=== PATIENT | male | born 1940 | race Caucasian/White ===

== ENCOUNTER 2017-11-10 18:31 | Inpatient (IN) | payer OTHER ==
[~2017-11-10] VITALS: Ht 175.3 cm; Wt 103.9 kg
[~2017-11-10 18:31] MED LIST: ASPIRIN EC81 M1 PO; CENTRUM ADULTS1 EACH PO; CEPHALEXIN500 M3 PO; DIGOXIN125 MCG PO; FISH OIL 1,2001 EAC1 PO; FUROSEMIDE40 M1 PO; HUMALOG100 UNIT/2 SC; LANTUS100 UNIT/1 SC; LEVOTHYROXINE25 MCG PO; LOSARTAN POTASS25 M1 PO; METOPROLOL TART25 M1 PO; OMEPRAZOLE20 M2 PO; SIMVASTATIN40 M1 PO; TAMSULOSIN HCL0.4 M1 PO; VITAMIN B-121000 MC3 PO
--- NOTE | 2017-11-10 18:44 | ED GENERAL ADULT ---
See Addendum History of Present Illness General Chief Complaint: General Adult Stated Complaint: BIBA GENERAL WEAKNESS Source: patient, old records, EMS Exam Limitations: no limitations Vital Signs & Intake/Output Vital Signs & Intake/Output Vital Signs Date Time Temp Pulse Resp B/P B/P Pulse O2 O2 Flow FiO2 Mean Ox Delivery Rate 11/10 2158 108 83/53 11/10 2116 99.2 104 20 84/60 94 Room Air 11/10 1918 Room Air 11/10 1845 107/53 11/10 1839 97.5 108 18 94 Room Air Triage Note: BIBA FROM HOME C/O INCREASED WEAKNESS X 2 DAYS AND BLE EDEMA. RECENTLY STARTED ON ELIQUIS-UNKNOWN REASON. PATIENT ALERT, ORIENTED, BUT LETHARGIC. LOWER EXTREMITIES ARE RED, EDEMA +3 AND OOZING. NO COMPLAINTS PER PATIENT. DENIES SOB, CP, OR ABDOMINAL PAIN. PATIENT DENIES URINARY SYMPTOMS, REDNESS NOTED TO GROIN. PATIENT IS HARD OF HEARING AND LEGALLY BLIND. PROVIDER AT BEDSIDE. Triage Nurses Notes Reviewed? yes HPI: Patient brought in by ambulance for increasing weakness and fatigue that have been worsening over the past 2 days. Positive nonproductive cough. No fevers or chills. Patient lives at home with his . Patient was recently started on ELIQUIS. (Nehemiah CANADA,Gavin Holloway) General Source: patient Exam Limitations: no limitations Allergies Coded Allergies: No Known Allergies (01/03/17) Reconcile Medications Aspirin (Ecotrin*) 81 MG TABLET. 1 TAB PO DAILY HEART/BLOOD (Reported) Cephalexin 500 MG CAPSULE 500 MG PO Q12 cellulitis please take one tablet tonight and one tablet tomorrow morning and one tablet tomorrow evening Cyanocobalamin (Vitamin B-12) (Unknown Strength) TABLET (Unknown Dose) PO DAILY SUPPLEMENT (Reported) Furosemide 40 MG TABLET 1 TAB PO BID DIURETIC (Reported) Insulin Lispro (Humalog) 100 UNIT/ML VIAL 0 SC TIDAC DM BS Sliding Scale Instruction Less than 80 mg/dl Initiate Hypoglycemia 80-150 mg/dl No Change 151-200 mg/dl Four units 201-250 mg/dl Six units 251-300 mg/dl Eight units 301-350 mg/dl Ten Units 351-400 mg/dl Twelve Units More than 400 mg/dl Fourteen Units Insulin-Lantus (Lantus) 100 UNIT/ML VIAL 60 UNIT SC AT BEDTIME DM Levothyroxine Sodium 25 MCG TABLET 1.5 TAB PO QPM THYROID (Reported) Losartan Potassium 25 MG TABLET 1 TAB PO DAILY BP (Reported) Metoprolol Tartrate 25 MG TABLET 1 TAB PO BID HEART/BP (Reported) Multivitamin/Iron/Folic Acid (Centrum Adults Tablet) 18 MG IRON-400 MCG TABLET 1 TAB PO DAILY SUPPLEMENT (Reported) [place]-3 Fatty Acids/Fish Oil (Fish Oil 1,200 MG Softgel) 360 MG-1,200 MG CAPSULE.DR 1 SGL PO DAILY SUPPLEMENT (Reported) Omeprazole 20 MG CAPSULE.DR 1 CAP PO DAILY GI (Reported) Simvastatin (Simvastatin*) 40 MG TABLET 1 TAB PO QPM CHOLESTEROL (Reported) Tamsulosin HCl 0.4 MG CAP.ER.24H 1 CAP PO QPM PROSTATE (Reported) Triage Nurses Notes Reviewed? yes Onset: Gradual Duration: day(s): Timing: recent history (Owen Mercer DO) Past History Travel History Traveled to [place] past 21 day No Medical History Any Pertinent Medical History? see below for history Neurological: NONE EENT: blindness Cardiovascular: CAD, hypertension, bradycardia Respiratory: NONE Gastrointestinal: NONE Hepatic: NONE Renal: NONE Musculoskeletal: L. TOES AMPUTATION Psychiatric: NONE Endocrine: diabetes, hypothyroidism Blood Disorders: NONE Cancer(s): NONE CASHIER COURTESY BOOTH/Reproductive: NONE History of MRSA: No History of VRE: No History of CDIFF: No Influenza Vaccine: 12/28/05 Surgical History Surgical History: left toe amputations Psychosocial History Who do you live with Spouse Services at Home None What is your primary language Nepali Tobacco Use: Quit >30 days ago ETOH Use: denies use Illicit Drug Use: denies illicit drug use Family History Family History, If Any: FATHER, ; Cause: Smoking. MOTHER, ; Cause: Old age. Hx Contributory? No (Nehemiah CANADA,Gavin Holloway) Review of Systems Review of Systems Constitutional: Reports: see HPI, weakness. EENTM: Reports: no symptoms. Respiratory: Reports: see HPI, cough. Cardiovascular: Reports: no symptoms. GI: Reports: no symptoms. Genitourinary: Reports: no symptoms. Musculoskeletal: Reports: no symptoms. Skin: Reports: no symptoms. Neurological/Psychological: Reports: no symptoms. Hematologic/Endocrine: Reports: no symptoms. Immunologic/Allergic: Reports: no symptoms. All Other Systems: Reviewed and Negative (Nehemiah CANADA,Gavin Holloway) Physical Exam Physical Exam General Appearance: well developed/nourished, alert, awake, mild distress Head: atraumatic Eyes: Bilateral: PERRL, EOMI. Ears, Nose, Throat: normal pharynx, normal ENT inspection, hearing grossly normal Neck: normal inspection, supple, full range of motion, JVD Respiratory: rhonchi, respiratory distress Cardiovascular: regular rate/rhythm, normal peripheral pulses Gastrointestinal: normal bowel sounds, soft, non-tender, no organomegaly, hernia Back: normal inspection, normal range of motion Extremities: PEDAL EDEMA WITH ERYTHEMA AND EXCORIATIONS Neurologic/Psych: no motor/sensory deficits, awake, alert, oriented x 3, normal mood/affect Skin: FUNGAL INFECTION TO GROIN Core Measures ACS in differential dx? No CVA/TIA Diagnosis: No Sepsis Present: No Sepsis Focused Exam Completed? No (Nehemiah CANADA,Gavin Holloway) Progress Differential Diagnoses I considered the following diagnoses in my evaluation of the patient: [UTI, pneumonia, electrolyte abnormality, AMI] Plan of Care: Orders Procedure Date/time Status Renal Dialysis Diet 11/11 B Active ED Holding Orders 11/10 2216 Active Admit to inpatient 11/10 2216 Active Vital Signs 11/10 2216 Active CULTURE,URINE 11/10 2216 Active URINALYSIS 11/10 2216 Active Code Status 11/10 221 Active Patient Data 11/10 221 Active [place], Insertion/Removal/Asses 11/10 2201 Active CULTURE,URINE 11/10 220 Active Telemetry/[employer]ician Support [employer] 11/10 184 Active BLOOD CULTURE 11/10 184 Active URINALYSIS 11/10 184 Active TROPONIN LEVEL 11/10 184 Complete LACTIC ACID 11/10 184 Complete COMPREHENSIVE METABOLIC PANEL 11/10 184 Complete CBC WITHOUT DIFFERENTIAL 11/10 184 Complete EKG 11/10 184 Active Current Medications Sig/Radhika Start time Last Medication Dose Stop Time Status Admin Sodium Chloride 1,000 ML ONCE ONE 11/10 221 UNVr (Normal Saline 0.9%) 11/11 0454 Laboratory Tests 11/10/17 2143: Lactic Acid Cancelled 11/10/17 1942: Anion Gap 15, Estimated GFR 10 L, BUN/Creatinine Ratio 19.0, Glucose 144 H, Lactic Acid 1.6, Calcium 8.6, Total Bilirubin 0.9, AST 169 H, ALT 40, Alkaline Phosphatase 87, Troponin I 0.12 *H, Total Protein 6.9, Albumin 3.1 L, Globulin 3.8, Albumin/Globulin Ratio 0.8 L, CBC w Diff NO MAN DIFF REQ, RBC 4.32 L, MCV 75.8 L, MCH 24.8 L, MCHC 32.7 L, RDW 16.5 H, MPV 7.6, Gran % 77.1 H, Lymphocytes % 15.5 L, Monocytes % 7.0, Eosinophils % 0.2, Basophils % 0.2, Absolute Granulocytes 6.4, Absolute Lymphocytes 1.3, Absolute Monocytes 0.6, Absolute Eosinophils 0, Absolute Basophils 0 Microbiology 11/10 2216 URINE ROUT: Urine Culture - ORD 11/10 2201 URINE ROUT: Urine Culture - ORD 11/10 2049 BLOOD: Blood Culture - RECD 11/10 1941 BLOOD: Blood Culture - RECD Diagnostic Imaging: Viewed by Me: Radiology Read. Discussed w/RAD: Radiology Read. Initial ED EKG: PENDING Hand-Off Endorsed To: Owen Mercer DO Endorsed Time: 1902 Pending: EKG, labs, Xray (Nehemiah CANADA,Gavin Holloway) Departure Departure Disposition: STILL A PATIENT Condition: Stable Referrals: Natanael Escudero MD (PCP/Family) Departure Forms: Customer Survey General Discharge Information (Gavin Cerna MD) Departure Clinical Impression Primary Impression: Weakness Secondary Impressions: LEROY (acute kidney injury), Elevated troponin Admission Note Spoke With: Natanael Escudero MD Documentation of Exam: Documentation of any treatments & extenuating circumstances including Concerns Regarding Discharge (functional status, medication knowledge or non-compliance, living conditions, etc.) that warrant an admission rather than observation: [The patient needs admission to the ICU for serial troponins, nephrology consultation , consider cardiology consultation, IV fluids, strict I's and O's, follow-up electrolytes, monitor her cardiovascular status] (Owen Mercer DO) Critical Care Note Critical Care Note Critical Care Time: non-applicable (Nehemiah CANADA,Gavin Holloway)
--- NOTE | 2017-11-10 19:09 | RADIOLOGY REPORT ---
EXAMINATION: XR PORTABLE CHEST CLINICAL INFORMATION: Cough and weakness. COMPARISON: Chest x-ray 01/03/2017 TECHNIQUE: Portable frontal view of the chest was obtained. 6:39 PM FINDINGS: Status post median sternotomy. The heart size is enlarged. There is no pulmonary vascular congestion. The lungs are clear. There is chronic pleural thickening at the right lateral costophrenic angle. No pleural effusions. IMPRESSION: There is no acute abnormality of the chest.
[2017-11-10 20:32] LABS: ABSOLUTE BASOPHIL COUNT 0 /CUMM (0.0-0.2); ABSOLUTE EOSINOPHIL COUNT 0 /CUMM (0.0-0.7); ABSOLUTE GRANULOCYTE CT 6.4 /CUMM (1.4-6.5); ABSOLUTE LYMPH COUNT 1.3 /CUMM (1.2-3.4); ABSOLUTE MONOCYTE COUNT 0.6 /CUMM (0.10-0.60); BASOPHIL % 0.2 % (0.0-2.0); EOSINOPHIL % 0.2 % (0-5); GRANULOCYTE % 77.1 % (42.2-75.2); HEMATOCRIT 32.8 % (42-52); MEAN CORPUSCULAR HGB 24.8 PG (27.0-31.0); MEAN CORPUSCULAR HGB CONC 32.7 G/DL (33.0-37.0); MEAN CORPUSCULAR VOLUME 75.8 FL (80.0-94.0); MEAN PLATELET VOLUME 7.6 FL (7.4-10.4); PLATELET COUNT 272 /CUMM (130-400); RBC DISTRIBUTION WIDTH 16.5 % (11.5-14.5); RED BLOOD CELL CT 4.32 /CUMM (4.70-6.10); WHITE BLOOD CELL COUNT 8.4 /CUMM (4.8-10.8)
--- NOTE | 2017-11-10 22:26 | History & Physical ---
[place],[facility] 11/10/17 2225: General Information and HPI MD Statement: I have seen and personally examined ESTEFANIBRANDY and documented this H&P. The patient is a 77 year old M who presented with a patient stated chief complaint of [generalized weakness]. 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 Patient denied any fever or chills. In addition he also denied any nausea, vomiting, diarrhea or abdominal pain. He denies chest pain, palpitation, lightheadedness. He lives home with his and his sons and he denies any recent travel or sick contacts. Denies any recent changes to his medication patient mentioned that he was started on Eliquis by his merchandise deliverer Dr. Jason, I tried to call his to confirm his medications and doses however I was not able to reach her. Quit smoking 30 years ago, no alcohol use, no recreational drug use ED course: Vitals on admission: Pedro 9 9.2, blood pressure 84/60, pulse 104, pulse ox 94 on room air Labs on admission: WBC 8.4, granulocytes 77.1, hemoglobin 10.7, platelets 272, sodium 130, potassium 4.8, BUN 110, creatinine 5.8, glucose 144, AST 169, ALT 40 , troponin 0 0.12 Chest x-ray: There is no acute abnormality in the chest Last echo on 2016 showed ejection fraction 30%, right ventricular dilatation, right atrial dilatation, moderate LAD, dilated IVC Patient received NS 1000 bolus iin the ED and a one-time dose of ceftriaxone Allergies/Medications Allergies: Coded Allergies: No Known Allergies (01/03/17) Home Med list Aspirin (Ecotrin*) 81 MG TABLET. 1 TAB PO DAILY HEART/BLOOD (Reported) Cephalexin 500 MG CAPSULE 500 MG PO Q12 cellulitis please take one tablet tonight and one tablet tomorrow morning and one tablet tomorrow evening Cyanocobalamin (Vitamin B-12) (Unknown Strength) TABLET (Unknown Dose) PO DAILY SUPPLEMENT (Reported) Furosemide 40 MG TABLET 1 TAB PO BID DIURETIC (Reported) Insulin Lispro (Humalog) 100 UNIT/ML VIAL 0 SC TIDAC DM BS Sliding Scale Instruction Less than 80 mg/dl Initiate Hypoglycemia 80-150 mg/dl No Change 151-200 mg/dl Four units 201-250 mg/dl Six units 251-300 mg/dl Eight units 301-350 mg/dl Ten Units 351-400 mg/dl Twelve Units More than 400 mg/dl Fourteen Units Insulin-Lantus (Lantus) 100 UNIT/ML VIAL 60 UNIT SC AT BEDTIME DM Levothyroxine Sodium 25 MCG TABLET 1.5 TAB PO QPM THYROID (Reported) Losartan Potassium 25 MG TABLET 1 TAB PO DAILY BP (Reported) Metoprolol Tartrate 25 MG TABLET 1 TAB PO BID HEART/BP (Reported) Multivitamin/Iron/Folic Acid (Centrum Adults Tablet) 18 MG IRON-400 MCG TABLET 1 TAB PO DAILY SUPPLEMENT (Reported) [place]-3 Fatty Acids/Fish Oil (Fish Oil 1,200 MG Softgel) 360 MG-1,200 MG CAPSULE.DR 1 SGL PO DAILY SUPPLEMENT (Reported) Omeprazole 20 MG CAPSULE.DR 1 CAP PO DAILY GI (Reported) Simvastatin (Simvastatin*) 40 MG TABLET 1 TAB PO QPM CHOLESTEROL (Reported) Tamsulosin HCl 0.4 MG CAP.ER.24H 1 CAP PO QPM PROSTATE (Reported) Inpatient Sepsis Exam Sepsis Cardiac Exam: Tachycardia Sepsis Resp Exam: Ronchi Sepsis Cap Refill Exam: <2 Sec Sepsis Peripheral Pulse Exam: Normal Sepsis Peripheral Pulse Location: Dorsalis Pedis Sepsis Skin Color Exam: Normal for Ethnicity Skin Temp/Moisture Exam: Cool/Dry Past History Travel History Traveled to [place] past 21 day No Medical History Neurological: NONE EENT: blindness Cardiovascular: CAD, hypertension, bradycardia Respiratory: NONE Gastrointestinal: NONE Hepatic: NONE Renal: NONE Musculoskeletal: L. TOES AMPUTATION Psychiatric: NONE Endocrine: diabetes, hypothyroidism Blood Disorders: NONE Cancer(s): NONE PCU RN/Reproductive: NONE History of MRSA: No History of VRE: No History of CDIFF: No Influenza Vaccine: 12/28/05 Surgical History Surgical History: left toe amputations Past Family/Social History Family History Relations & Conditions if any FATHER, ; Cause: Smoking. MOTHER, ; Cause: Old age. Psychosocial History Services at Home: None ETOH Use: denies use Illicit Drug Use: denies illicit drug use Review of Systems Review of Systems Constitutional: Reports: malaise, weakness. Denies: chills, diaphoresis, fever. Cardiovascular: Denies: chest pain, edema, orthopena, palpitations, syncope. Respiratory: Reports: cough, sputum production. Denies: short of breath. GI: Denies: abdominal pain, diarrhea, melena, nausea, bloody stool, vomiting. Genitourinary: Denies: dysuria, frequency, pain, urgency. Musculoskeletal: Denies: no symptoms. Skin: Denies: no symptoms. Exam & Diagnostic Data Last 24 Hrs of Vital Signs/I&O Vital Signs Date Time Temp Pulse Resp B/P B/P Pulse O2 O2 Flow FiO2 Mean Ox Delivery Rate 11/10 2312 99.1 102 18 93/51 96 Room Air 11/10 2158 108 83/53 11/10 2116 99.2 104 20 84/60 94 Room Air 11/10 1918 Room Air 11/10 1845 107/53 11/10 1839 97.5 108 18 94 Room Air Physical Exam General Appearance Alert, Oriented X3, Cooperative HEENT Atraumatic, EOMI, dry MM Cardiovascular Normal S1, Normal S2 Lungs bilateral wide spread coarse rales Abdomen Normal Bowel Sounds, Soft, 2 scars of old hernia operation in the mid abdomen, localized non tender swelling around the scar Neurological Normal Speech, Strength at 5/5 X4 Ext, Normal Tone, Sensation Intact, Cranial Nerves 3-12 NL Extremities 2 + BL pitting edema, chronic skin changes, faint pulses in dorsalis pedis, amputation of toes 2-5 on the left foot, big toe shoe redness and excoriartion Last 24 Hrs of Labs/Barry: Laboratory Tests 11/10/172307: Urine Color YEL, Urine Clarity CLEAR, Urine pH 5.5, Ur Specific Earle 1.025, Urine Protein NEG, Urine Ketones NEG, Urine Nitrite NEG, Urine Bilirubin NEG, Urine Urobilinogen 1.0, Ur Leukocyte Esterase NEG, Ur Microscopic EXAM NOT REQUIRED, Urine Hemoglobin NEG, Urine Glucose NEG 11/10/172216: Urine Color Cancelled, Urine Clarity Cancelled, Urine pH Cancelled, Ur Specific Earle Cancelled, Urine Protein Cancelled, Urine Ketones Cancelled, Urine Nitrite Cancelled, Urine Bilirubin Cancelled, Urine Urobilinogen Cancelled, Ur Leukocyte Esterase Cancelled, Ur Microscopic Cancelled, Urine Hemoglobin Cancelled, Urine Glucose Cancelled 11/10/17 2143: Lactic Acid Cancelled 11/10/171941: Anion Gap 15, Estimated GFR 10 L, BUN/Creatinine Ratio 19.0, Glucose 144 H, Lactic Acid 1.6, Calcium 8.6, Total Bilirubin 0.9, AST 169 H, ALT 40, Alkaline Phosphatase 87, Troponin I 0.12 *H, Total Protein 6.9, Albumin 3.1 L, Globulin 3.8, Albumin/Globulin Ratio 0.8 L, CBC w Diff NO MAN DIFF REQ, RBC 4.32 L, MCV 75.8 L, MCH 24.8 L, MCHC 32.7 L, RDW 16.5 H, MPV 7.6, Gran % 77.1 H, Lymphocytes % 15.5 L, Monocytes % 7.0, Eosinophils % 0.2, Basophils % 0.2, Absolute Granulocytes 6.4, Absolute Lymphocytes 1.3, Absolute Monocytes 0.6, Absolute Eosinophils 0, Absolute Basophils 0 Microbiology 11/11 2307 URINE ROUT: Urine Culture - RECD 11/10 2216 URINE ROUT: Urine Culture - CAN Cancelled: Cancelled via OE: DUPLICATE ORDER 11/10 2049 BLOOD: Blood Culture - RECD 11/10 1941 BLOOD: Blood Culture - RECD Diagnostic Data EKG Results Sinus tachycardia 103, QTc 534, AK 126, right bundle branch block,LAFB CXR Results No acute changes Assessment/Plan Assessment: 76-year-old gentleman with past medical history of CAD (s/P CABG) diabetes, chronic venous insufficiency, HTN and 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 Patient denied any fever or chills. In addition he also denied any nausea, vomiting, diarrhea or abdominal pain. In the emergency room he was found to be hypotensive with blood pressure 84/60 with sinus tachycardia, he was given 1 L of bolus normal saline, which brought up his blood pressure to 9 3/51. Patient has history of ischemic cardiomyopathy with ejection fraction 30%. His hypertension might be due to sepsis (he met to a lesser's criteria) patient reports a productive cough for the past few days however his chest x-ray did not show any signs of acute pneumonia. Sepsis might be due to pneumonia versus UTI versus cellulitis Patient was also found to have a UTI with creatinine 5.8, his baseline was 1.2 back on June 2017 most likely prerenal due to dehydration. We will admit the patient to the ICU for treatment of the following condition: shock cardiogenic vs septic shock Patient met 2 of the sepsis criteria with hypotension and tachycardia, Differential diagnosis includes pneumonia, UTI, cellulitis however the pt has a history of heart failure due to ischemic cardiomyopathy with reduced EF 30 % He was given 1 L normal saline which resulted in slight improvement of his blood pressure to 93/51. Given his low ejection fraction of 30% , signs of volume overload with lower extremity edema will use IV fluids carefully if BP continues to drop, pt will need centralline and IV pressors Maintain on D5 normal saline 75 cc/h Close monitoring of vital signs and can bolus normal saline if his blood pressure does not improve he received 1 dose of ceftriaxone in the ED Start IV ceftriaxone 1 g daily Follow-up on pending panculture Follow-up on lactic acid Strict monitoring of vital signs Monitor I's and O's LEROY: On presentation the patient creatinine was 5.8, his baseline is 1.2 Most likely prerenal due to dehydration Gentle IV fluid hydration with D5 normal saline at 75 cc/h Avoid nephrotoxic Consider ultrasound abdomen to rule out obstructive causes If does not improve on IV fluids will consider nephrology consult Close monitoring of kidney functions Elevated troponin: Troponin on admission was 0.12, patient did not have any chest pain, no EKG changes Most likely due to demand ischemia Serial troponin and EKG to rule out ACS Discussed with Dr. Jason, follow-up on cardiology recommendation Acute on chronic CHF with reduced ejection fraction: Most likely due to ischemic cardiomyopathy with history of CAD We will hold off his home meds including lasix for now given his hypotension Cardiology consult appreciated Most likely will need to repeat his echo Hyponatremia: Sodium on admission was 130 Most likely due to poor oral intake Gentle IV fluid hydration with D5 normal saline Close monitoring of BEP History of PVD, bilateral lower extremity cellulitis: Follow-up on blood culture Continue IV ceftriaxone for now Wound consult appreciated in the a.m. IDDM: Fingerstick glucose Insulin sliding scale Confirm home meds in the a.m. and resume his Levemir home dose Consistent carbohydrate 1 diet DVT prophylaxis with subcutaneous heparin DNR/DNI Consistent carbohydrate 1 diet As Ranked By This Provider Problem List: 1. Elevated troponin 2. LEROY (acute kidney injury) 3. Weakness 4. Cellulitis of leg Core Measures/Misc (12/14) Acute Coronary Syndrome ACS Diagnosis: No Congestive Heart Failure Congestive Heart Failure Diagnosis Yes Last Known EF % 30 Cerebrovascular Accident CVA/TIA Diagnosis: No VTE (View Protocol) VTE Risk Factors Age>40 No Mechanical VTE Prophylaxis d/t N/A MechProphylax Ordered No VTE Pharm Prophylaxis d/t NA PharmProphylax ordered Sepsis (View protocol) Sepsis Present: Yes If YES complete Sepsis Event Note If YES complete Sepsis Event Note [place],[facility] 11/11/17 0925: Core Measures/Misc (12/14) Sepsis (View protocol) If YES complete Sepsis Event Note If YES complete Sepsis Event Note Attending MD Review Statement Attending Statement Attending MD Statement: examined this patient, discuss w/resident/PA/SHIPPING SUPPORT, agreed w/resident/PA/SHIPPING SUPPORT, discussed with family, reviewed EMR data (avail), discussed with nursing, discussed with case mgmt, reviewed images, amended to note Attending Assessment/Plan: Seen and examined Out pt problem list CHF (congestive heart failure) (HC Code) Chronic obstructive pulmonary disease, unspecified COPD type (HC Code) 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 Paroxysmal atrial fibrillation (HC Code) Pulmonary HTN (HC Code) PVD (peripheral vascular disease) with chronic lower ext ischemia / vascular follow up ongoing Type 2 diabetes mellitus with ophthalmic complication, with long-term current use of insulin (HC Code) BPH (benign prostatic hyperplasia) Diabetic foot IHD (ischemic heart disease) Legally blind Obesity hypoventilation syndrome (HC Code) Renal stones Venous insufficiency (chronic) (peripheral) / with lower ext ulcers both arterial and venous Ventral hernia without obstruction or gangrene Anemia in chronic kidney disease Hyperlipemia Hypertension Hypothyroidism Idiopathic peripheral neuropathy Intervertebral disc disorders with radiculopathy, lumbar region Morbid (severe) obesity due to excess calories (HC Code) HOME MEDS b complex vitamins capsule furosemide (LASIX) 20 MG tablet insulin glargine (LANTUS) 100 unit/mL vial insulin lispro (HUMALOG) 100 unit/mL vial lancets (ONETOUCH DELICA LANCETS) 33 gauge Misc levothyroxine (SYNTHROID, LEVOTHROID) 25 MCG tablet losartan (COZAAR) 25 MG tablet metoprolol tartrate (LOPRESSOR) 25 MG Immediate Release tablet simvastatin (ZOCOR) 40 MG tablet tamsulosin (FLOMAX) 0.4 mg Cp24 24 hr capsule General Appearance Alert, Oriented X3, Cooperative HEENT Atraumatic, EOMI, dry MM Cardiovascular Normal S1, Normal S2 Lungs bilateral wide spread coarse rales Abdomen Normal Bowel Sounds, Soft, 2 scars of old hernia operation in the mid abdomen, localized non tender swelling around the scar Neurological Normal Speech, Strength at 5/5 X4 Ext, Normal Tone, Sensation Intact, Cranial Nerves 3-12 NL Extremities 2 + BL pitting edema, chronic skin changes, faint pulses in dorsalis pedis, amputation of toes 2-5 on the left foot, big toe shoe redness and excoriartion This is an unfortunate 77-year-old gentleman with history of severe cardiomyopathy with low ejection fraction, diabetes with chronic kidney disease, legally blind from diabetic retinopathy, poor performance status bedbound wheelchair bound almost, lower extremity edema with chronic venous ulcers, previously had denied any further workup and treatment for his worsening cardiomyopathy including not going through the AICD came in because he was having generalized weakness. History as noted above. Patient has been on anticoagulation recently with Eliquis for his paroxysmal atrial fibrillation. When he came into the emergency room he was slightly hypotensive and was found to be in acute renal failure and was fluid resuscitated. Distantly hypotensive. He did say that he may have had chest pain at home but he did not have any pain when he was here, he was complaining of productive cough with small yellow sputum but his chest x-ray did not show any significant infiltrate. His issues include Severe cardiomyopathy with low ejection fraction now with acute renal failure probably related to low flow state, patient's CVP is more than 16 Persistent hypotension now requiring pressors consistent with cardiogenic shock unlikely sepsis. Previous renal stone with obstructive uropathy in the past, with nephrostomy tube in the past Acute on chronic systolic heart failure Pulmonary congestion with cough and some sputum rule out acute bronchitis versus subtle right middle lobe pneumonia Coronary artery disease, previous CABG, significant ischemic cardiomyopathy with reduced ejection fraction Paroxysmal atrial fibrillation Pulmonary hypertension secondary to his significant heart disease Very severe peripheral vascular disease and chronic venous insufficiency had denied any surgery Insulin requiring diabetes with all the complications including diabetic retinopathy, nephropathy, vascular disease Morbid obesity, chronic anemia, BPH, hypothyroidism on appropriate medications Obstructive sleep apnea with obesity hypoventilation syndrome does not wish to use CPAP on oxygen GERD/ventral hernia Hypothyroid on levoxyl COPD which is mild to moderate with component of restrictive lung disease RECOMMENDATION Discussed with patient extensively now and as an outpatient before. His prior wishes were to only go through very conservative therapy and if worse he wished very conservative care. He has reluctantly agreed to have a triple-lumen hence we will treat him conservatively per his wishes Start low-dose levo fed Reduce IV fluids to 50 cc Keep n.p.o. Sliding scale Hold anticoagulation for now. Patient was on Eliquis now and acute renal failure. If he improves we will start him on heparin. He does seem to have microcytic anemia now If his blood pressure tolerates we will have to consider rate control medication as he continues to be tachycardic with very low dose beta-zaid versus amiodarone will have cardiology to see the patient. Not a candidate for digoxin due to worsening acute renal failure Check thyroid function tests Continue high-dose statin, hold for the Levoxyl, Rule out [place] Echocardiogram Ultrasound of the abdomen to rule out obstructive uropathy and if it is nonrevealing will do a CT scan of the abdomen and pelvis if he becomes more stable later on during the day Continue ceftriaxone for now Nebulizer treatment only with ipratropium to prevent tachycardia Dr. Jason is aware will be seeing the patient today Patient is critically ill total time spent 45 minutes Patient wishes no dialysis no further aggressive therapy wishes to maximum conservative therapy. If he continues to get worse we will discuss other options
[2017-11-11 00:25] VITALS: BP 68/00
--- NOTE | 2017-11-11 01:55 | Event Note ---
Event Note Event Note: At 1:50 AM on November 11, patient was asked his preference regarding placement of a central line for fluid resuscitation. Patient was made aware of the indication for the central line, and if the dangers of not placing one. Patient states that he understood, and requested alternative options. Patient was told that he could continue to receive fluids via his IVs, which the patient consented.
[2017-11-11 02:28] LABS: ABSOLUTE BASOPHIL COUNT 0 /CUMM (0.0-0.2); ABSOLUTE EOSINOPHIL COUNT 0 /CUMM (0.0-0.7); ABSOLUTE GRANULOCYTE CT 6.7 /CUMM (1.4-6.5); ABSOLUTE LYMPH COUNT 1.1 /CUMM (1.2-3.4); ABSOLUTE MONOCYTE COUNT 0.4 /CUMM (0.10-0.60); BASOPHIL % 0 % (0.0-2.0); EOSINOPHIL % 0.1 % (0-5); GRANULOCYTE % 81.7 % (42.2-75.2); MEAN CORPUSCULAR HGB 25.4 PG (27.0-31.0); MEAN CORPUSCULAR HGB CONC 33.2 G/DL (33.0-37.0); MEAN CORPUSCULAR VOLUME 76.5 FL (80.0-94.0); MEAN PLATELET VOLUME 7.8 FL (7.4-10.4); PLATELET COUNT 214 /CUMM (130-400); RBC DISTRIBUTION WIDTH 16.4 % (11.5-14.5); RED BLOOD CELL CT 4.06 /CUMM (4.70-6.10); WHITE BLOOD CELL COUNT 8.2 /CUMM (4.8-10.8)
[2017-11-11 06:31] LABS: ABSOLUTE BASOPHIL COUNT 0 /CUMM (0.0-0.2); ABSOLUTE EOSINOPHIL COUNT 0 /CUMM (0.0-0.7); ABSOLUTE GRANULOCYTE CT 7.1 /CUMM (1.4-6.5); ABSOLUTE LYMPH COUNT 0.9 /CUMM (1.2-3.4); ABSOLUTE MONOCYTE COUNT 0.5 /CUMM (0.10-0.60); BASOPHIL % 0.1 % (0.0-2.0); EOSINOPHIL % 0 % (0-5); GRANULOCYTE % 83.8 % (42.2-75.2); HEMATOCRIT 30.7 % (42-52); MEAN CORPUSCULAR HGB CONC 32.4 G/DL (33.0-37.0); MEAN CORPUSCULAR VOLUME 77.3 FL (80.0-94.0); MEAN PLATELET VOLUME 7.4 FL (7.4-10.4); PLATELET COUNT 218 /CUMM (130-400); RBC DISTRIBUTION WIDTH 16.4 % (11.5-14.5); RED BLOOD CELL CT 3.97 /CUMM (4.70-6.10); WHITE BLOOD CELL COUNT 8.5 /CUMM (4.8-10.8)
--- NOTE | 2017-11-11 06:40 | RADIOLOGY REPORT ---
EXAMINATION: XR PORTABLE CHEST CLINICAL INFORMATION: Status post normal saline bolus. Pulmonary congestion. COMPARISON: 11/10/2017 TECHNIQUE: Portable frontal view of the chest was obtained. FINDINGS: Median sternotomy wires appear intact. Cardiac leads overlie the chest. Lung volumes are low. Persistent hazy opacity at the right base. No pleural effusion or pneumothorax. No edema. The cardiomediastinal silhouette remains prominent. IMPRESSION: No significant change from prior. Low lung volumes with hazy opacity at the right base which could represent atelectasis or pneumonia. No evidence of edema.
--- NOTE | 2017-11-11 07:22 | Cons- [facility] ---
General Information and HPI Allergies/Medications Allergies: Coded Allergies: No Known Allergies (01/03/17) Home Med List: Aspirin (Ecotrin*) 81 MG TABLET.DR 1 TAB PO DAILY HEART/BLOOD (Reported) Cephalexin 500 MG CAPSULE 500 MG PO Q12 cellulitis please take one tablet tonight and one tablet tomorrow morning and one tablet tomorrow evening Cyanocobalamin (Vitamin B-12) (Unknown Strength) TABLET (Unknown Dose) PO DAILY SUPPLEMENT (Reported) Furosemide 40 MG TABLET 1 TAB PO BID DIURETIC (Reported) Insulin Lispro (Humalog) 100 UNIT/ML VIAL 0 SC TIDAC DM BS Sliding Scale Instruction Less than 80 mg/dl Initiate Hypoglycemia 80-150 mg/dl No Change 151-200 mg/dl Four units 201-250 mg/dl Six units 251-300 mg/dl Eight units 301-350 mg/dl Ten Units 351-400 mg/dl Twelve Units More than 400 mg/dl Fourteen Units Insulin-Lantus (Lantus) 100 UNIT/ML VIAL 60 UNIT SC AT BEDTIME DM Levothyroxine Sodium 25 MCG TABLET 1.5 TAB PO QPM THYROID (Reported) Losartan Potassium 25 MG TABLET 1 TAB PO DAILY BP (Reported) Metoprolol Tartrate 25 MG TABLET 1 TAB PO BID HEART/BP (Reported) Multivitamin/Iron/Folic Acid (Centrum Adults Tablet) 18 MG IRON-400 MCG TABLET 1 TAB PO DAILY SUPPLEMENT (Reported) [place]-3 Fatty Acids/Fish Oil (Fish Oil 1,200 MG Softgel) 360 MG-1,200 MG CAPSULE.DR 1 SGL PO DAILY SUPPLEMENT (Reported) Omeprazole 20 MG CAPSULE.DR 1 CAP PO DAILY GI (Reported) Simvastatin (Simvastatin*) 40 MG TABLET 1 TAB PO QPM CHOLESTEROL (Reported) Tamsulosin HCl 0.4 MG CAP.ER.24H 1 CAP PO QPM PROSTATE (Reported) Past History Travel History Traveled to [place] past 21 day No Medical History Blood Transfusion Hx: No Neurological: NONE EENT: blindness Cardiovascular: CAD, chronic venous insuff, hypertension, bradycardia VALVE REPLACEMENT Respiratory: NONE Gastrointestinal: NONE Hepatic: NONE Renal: NONE Musculoskeletal: L. TOES AMPUTATION Psychiatric: NONE Endocrine: diabetes, hypothyroidism Blood Disorders: NONE Cancer(s): NONE TIPPLE BOSS/Reproductive: NONE Surgical History Surgical History: left toe amputations Family History Relations & Conditions If Any: FATHER, ; Cause: Smoking. MOTHER, ; Cause: Old age. Psychosocial History Where Do You Live? Home Services at Home: None Smoking Status: Former Smoker ETOH Use: denies use Illicit Drug Use: denies illicit drug use Assessment/Plan [facility] Consult Acknowledgment - Thank you for your consult request.
[2017-11-11 08:00] VITALS: BP 80/0
--- NOTE | 2017-11-11 09:07 | Procedure ---
Minor Surgical Procedure Note Date of Procedure: 11/11/17 Procedure Note: Procedure: R IJ TLC insertion Indication: Sepsis, need for pressors Consent: Obtained by resident who obtained via telephone due to urgency Procedure: Patient placed supine in hospital bed. Bed was then placed in trendelenburg position. Right side of neck was prepped and drapped in sterile fashion. Ultrasound was used to identify right IJ. 5 cc of 1% lidocain was injected for local anesthetic.A finder needle was used to access the IJ with good blood return. Syringe was removed and wire was passed through the needle. Needle was then removed. Skin ford was made with 11 blade scapel and introducer serene was passed over the wire. Sheath was then removed and replaced with catheter, which was placed to 15 cm and sutured into place with silk sutre and sterile dressing was applied. Patient tolerated procedure well. Stat CXR ordered.
--- NOTE | 2017-11-11 09:24 | Admission Certification ---
Admission Certification Certification Statement - As attending physician, I certify that at the time of - admission, based on clinical presentation, severity of - symptoms, need for further diagnostic testing and - therapeutic interventions, and risk of adverse outcomes - without in-hospital treatment, in my clinical assessment, - this patient requires an acute hospital stay for a minimum - of two nights or longer. I have also considered psychsocial - factors such as support system, advanced age, financial - issues, cognitive issues, and failed out-patient treatments, - past re-admission history, safety of patient, and lack of - compliance as applicable. Specific rationale supporting this admission is: Severe cardiomyopathy with acute renal failure
--- NOTE | 2017-11-11 09:49 | PN- Resident CRCU ---
Subjective HPI/CRCU Issues: Cardiogenic shock due to ischemic cardiomyopathy Acute on chronic systolic heart failure Acute on chronic kidney injury in the setting of cardiogenic shock and prerenal. Possible right middle lobe pneumonia versus bronchitis History of Coronary artery disease, previous CABG, significant ischemic cardiomyopathy with reduced ejection fraction History of Paroxysmal atrial fibrillation History of Pulmonary hypertension secondary to his significant heart disease History of Severe peripheral vascular disease and chronic venous insufficiency History of Insulin requiring diabetes with complications including diabetic retinopathy, nephropathy and vascular disease. History of COPD/SALLIE on CPAP and oxygen History of GERD and ventral hernia History of hypothyroidism History of obstructed uropathy due to renal stone with nephrostomy tube 24 Hour Events: Patient remained hypotensive overnight. He received 2.5 L fluids but still remained hypotensive. Initially patient refused CVP line but later on he agreed. CVP line was placed this morning and he was started on pressors. Patient is able to communicate and oriented. He denied chest pain, palpitation, nausea, vomiting, abdominal pain and dysuria. He is on 2 L of oxygen and maintaining saturation 93%. Objective Vital Signs & I&O Last 8 Hrs of Vitals and I&O: Med Norepinephrine 4 MG IV Q13H 11/11/17 1030 Sodium Chloride 250 ML Intake & Output 11/11 1600 Intake Total 826 Output Total 65 Balance 761 Intake, IV 826 Intake, Oral 0 Number 2 Bowel Movements Output, Urine 65 Patient 230 lb Weight Weight Bed scale Measurement Method Exam General Appearance: well developed/nourished, alert, awake Head: atraumatic Neck: normal inspection, supple Respiratory: b/l decreased breath , B/L coarse crackles Cardiovascular: regular rate/rhythm Gastrointestinal: normal bowel sounds, soft, Ventral hernia and scar gonzalez from previous surgeries. Extremities: B/L chronic venous changes(statis dermatitis) Skin: Bed sores on the back in coccygeal region and b/l buttocks. Also bruises and skin tear close to scrotum Skin Temp/Moisture Exam: Warm/Dry Sepsis Skin Exam (color): Normal for Ethnicity Current Medications: Current Medications Sig/Radhika Start time Last Medication Dose Route Stop Time Status Admin Acetaminophen 500 MG Q6P PRN 11/10 2345 AC PO Acetaminophen 1,000 MG Q6P PRN 11/10 2345 AC IV Atorvastatin Calcium 20 MG 1700 11/11 1700 AC PO Ceftriaxone Sodium 1,000 MG DAILY 11/11 0900 AC 11/11 IV 0932 Ceftriaxone Sodium 0 .STK-MED ONE 11/10 2320 DC .ROUTE Ceftriaxone Sodium 1,000 MG ONCE ONE 11/10 2230 DC 11/10 IV 11/10 2231 2329 Dextrose/Sodium 1,000 ML Q10H 11/11 0815 AC 11/11 Chloride IV 1356 Dextrose/Sodium 1,000 ML Q13H 11/10 2315 DC 11/10 Chloride IV 2340 Heparin Sodium 0 .STK-MED ONE 11/10 2335 DC (Porcine) .ROUTE Heparin Sodium 5,000 UNIT Q8 11/10 2313 AC 11/11 (Porcine) SC 1356 Insulin Aspart 0 TIDAC 11/11 0800 DC 11/11 SC 0933 Insulin Human Regular 0 .STK-MED ONE 11/11 1355 DC .ROUTE Insulin Human Regular 0 Q6 11/11 1327 AC 11/11 SC 1356 Ipratropium [place] 2.5 ML Q4P PRN 11/11 1100 AC INH Norepinephrine 4 MG Q6H 11/11 1500 AC Sodium Chloride 250 ML IV Norepinephrine 4 MG Q13H 11/11 1030 DC 11/11 Sodium Chloride 250 ML IV 1058 Norepinephrine 4 MG Q24H 11/11 0915 DC 11/11 Sodium Chloride 250 ML IV 0932 Norepinephrine 0 .STK-MED ONE 11/11 0910 DC IV Nystatin 1 CLARITA TID 11/11 1400 AC 11/11 TOP 1357 Sodium Chloride 500 ML BOLUS ONE 11/11 0600 DC 11/11 IV 11/11 0659 0554 Sodium Chloride 1,000 ML BOLUS ONE 11/11 0300 DC 11/11 IV 11/11 0359 0253 Sodium Chloride 1,000 ML BOLUS ONE 11/11 0045 DC 11/11 IV 11/11 0144 0051 Sodium Chloride 1,000 ML ONCE ONE 11/10 2215 DC IV 11/11 0454 Zinc Oxide 1 CLARITA BID 11/11 1146 AC 11/11 TOP 1356 Impression/Plan Impression/Problem List Impression: 77 YO M legally blind with PMH of severe cardiomyopathy with low ejection fraction, diabetes with chronic kidney disease, diabetic retinopathy, poor performance status bedbound wheelchair bound almost, lower extremity edema with chronic venous ulcers, previously had denied any further workup and treatment for his worsening cardiomyopathy including not going through the AICD came in because he was having generalized weakness. History as noted above. Patient has been on anticoagulation recently with Eliquis for his paroxysmal atrial fibrillation. In ED patient was hypotensive with acute on chronic kidney injury. Patient was given IV resuscitation with 2.5 L of fluid but his remained hypotensive. Patient was offered central line to start pressor initially patient refused but later on he agreed. This morning he was started on pressor after central line. Patient was complaining of productive cough with yellow colored phlegm and chest x-ray didn't show any infiltrates initially. Cardiogenic shock: -Due to acute on chronic systolic heart failure in the setting of ischemic cardiomyopathy. Less likely due to septic shock. His last echo was done in 2016 that showed ejection fraction 30%. With moderate to severe global reduced left ventricular systolic function. -On last admission the possibility of a ACID was discussed with the patient but patient couldn't get it considering his weakness. -His systolic blood pressure remained in 80s with Doppler. -CVP line was placed and we will continue his Levophed on 5 mcg/h -His CVP pressure is 16 that showed worsening cardiac systolic function. -IV fluid decreased to 50 mL per hour due to elevated CVP. -Patient is not candidate for digoxin considering his worsening kidney function. -Monitoring his troponin and EKGs to rule out cardiac ischemia that can precipitate his acute on chronic systolic dysfunction. -Daily weight -Monitor input and output -Closely monitor his blood pressure. -We will follow the echocardiogram results. -We will follow cardiology recommendations. Acute on chronic kidney injury: -Patient's baseline creatinine is 1.4 as mentioned in his last discharge summary in December 2016. -His GFR remained in the 40s50s -Stage III CKD as patient having diabetic nephropathy. -Acute on chronic kidney injury this time possibly with prerenal in the setting of acute on chronic systolic dysfunction. -Patient wishes no dialysis no further aggressive therapy wishes to maximum conservative therapy. If he continues to get worse we will discuss other options. -Avoid nephrotoxic medications and NSAIDs -Holding his Lasix and losartan due to low blood pressure and kidney injury. -Monitor input and output -Follow-up nephrology recommendations. Possible pneumonia versus bronchitis: -Patient is complaining of cough and bringing up yellow colored phlegm. Although he is afebrile and normal WBC count. -Imaging studies showed this morning opacity in right middle lobe could be pneumonia or atelectasis. -Continue ceftriaxone, Day 2 -Follow-up sputum culture -Nebulization with ipratropium to prevent tachycardia -Watch for signs of infection Elevated troponin: -Patient has elevated troponin possibly due to cardiomyopathy or demand ischemia in the setting of acute on chronic kidney. -No changes and EKGs. 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 History of paroxysmal A. fib: -Patient was on xeralto that he took 24-hour before. -Holding his xeralto to due to acute on chronic kidney. -Holding his metoprolol due to low blood pressure. History of obstructed uropathy due to kidney stone: -In the past patient has kidney stones and nephrostomy tube was placed. -We will do a KUB ultrasound to rule out obstructive uropathy if it's remained on conclusive then we will do dry CT scan abdomen pelvis to rule out kidney stones. History of hypothyroidism: -Holding his levothyroxin. -We will check his TSH and free T4. History of hypertension hyperlipidemia: -Holding his metoprolol and losartan -Continuing his Lipitor History of diabetes with complication: -Patient has insulin requiring diabetes with retinopathy, nephropathy and peripheral vascular disease. -Accu-Cheks -Insulin NovoLog sliding sliding scale Bedsores: -Patient had bedsores present on admission in coccygeal region and on buttocks. -He has ecchymosis close to scrotum and skin tears -Patient needs clinitron bed to prevent progression of pressure ulcers. -Daily dressing as needed with zinc oxide ointment. DVT prophylaxis: Only s/c heparin. No mechanical due to chronic venous changes. CODE STATUS: DNR/intu Problem List: 1. Acute on chronic systolic heart failure 2. Elevated troponin 3. [id number] kidney injury Pain Ratin Pain Location: none Pain Plan: pain pathway Tomorrow's Labs & Rationales: cbc/icu bundle. Plan DVT/Prophylaxis: pharmacological
--- NOTE | 2017-11-11 09:51 | PN- CRCU ---
Subjective HPI/Critical Care Issues: Doing a little worse Persistently tachycardic Hypotensive Now has a triple-lumen CVP 16 Hardly has made any urine Objective Current Medications: Current Medications Sig/Radhika Start time Last Medication Dose Route Stop Time Status Admin Acetaminophen 500 MG Q6P PRN 11/10 2345 AC PO Acetaminophen 1,000 MG Q6P PRN 11/10 2345 AC IV Ceftriaxone Sodium 1,000 MG DAILY 11/11 0900 AC 11/11 IV 0932 Ceftriaxone Sodium 0 .STK-MED ONE 11/10 2320 DC .ROUTE Ceftriaxone Sodium 1,000 MG ONCE ONE 11/10 2230 DC 11/10 IV 11/10 2231 2329 Dextrose/Sodium 1,000 ML Q10H 11/11 0815 AC Chloride IV Dextrose/Sodium 1,000 ML Q13H 11/10 2315 DC 11/10 Chloride IV 2340 Heparin Sodium 0 .STK-MED ONE 11/10 2335 DC (Porcine) .ROUTE Heparin Sodium 5,000 UNIT Q8 11/10 2313 AC 11/11 (Porcine) SC 0546 Insulin Aspart 0 TIDAC 11/11 0800 AC 11/11 SC 0933 Norepinephrine 4 MG Q24H 11/11 0915 AC 11/11 Sodium Chloride 250 ML IV 0932 Norepinephrine 0 .STK-MED ONE 11/11 0910 DC IV Sodium Chloride 500 ML BOLUS ONE 11/11 0600 DC 11/11 IV 11/11 0659 0554 Sodium Chloride 1,000 ML BOLUS ONE 11/11 0300 DC 11/11 IV 11/11 0359 0253 Sodium Chloride 1,000 ML BOLUS ONE 11/11 0045 DC 11/11 IV 11/11 0144 0051 Sodium Chloride 1,000 ML ONCE ONE 11/10 2215 DC IV 11/11 0454 Vital Signs & I&O Last 24 Hrs of Vitals and I&O: Vital Signs Date Time Temp Pulse Resp B/P B/P Pulse O2 O2 Flow FiO2 Mean Ox Delivery Rate 11/11 0932 69/51 11/11 0400 95 Nasal 2.0L Cannula 11/11 0111 96 Nasal 2.0L Cannula 11/11 0025 96.1 97 28 68/00 94 Room Air Room Air 11/102 99.1 102 18 93/51 96 Room Air 11/10 2158 108 83/53 11/11 2115 99.2 104 20 84/60 94 Room Air 11/10 1918 Room Air 11/10 1845 107/53 11/10 1839 97.5 108 18 94 Room Air Intake & Output 11/11 1600 11/11 0800 11/11 0000 Intake Total 2801 100 Output Total 25 500 Balance 2776 -400 Intake, IV 2801 100 Intake, Oral 0 Number 0 Bowel Movements Output, Urine 25 500 Patient 224 lb 280 lb Weight Weight Bed scale Estimated Measurement Method Impression/Plan Impression/Plan Impression/Plan: Seen and examined Out pt problem list CHF (congestive heart failure) (HC Code) Chronic obstructive pulmonary disease, unspecified COPD type (HC Code) 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 Paroxysmal atrial fibrillation (HC Code) Pulmonary HTN (HC Code) PVD (peripheral vascular disease) with chronic lower ext ischemia / vascular follow up ongoing Type 2 diabetes mellitus with ophthalmic complication, with long-term current use of insulin (HC Code) BPH (benign prostatic hyperplasia) Diabetic foot IHD (ischemic heart disease) Legally blind Obesity hypoventilation syndrome (HC Code) Renal stones Venous insufficiency (chronic) (peripheral) / with lower ext ulcers both arterial and venous Ventral hernia without obstruction or gangrene Anemia in chronic kidney disease Hyperlipemia Hypertension Hypothyroidism Idiopathic peripheral neuropathy Intervertebral disc disorders with radiculopathy, lumbar region Morbid (severe) obesity due to excess calories (HC Code) HOME MEDS b complex vitamins capsule furosemide (LASIX) 20 MG tablet insulin glargine (LANTUS) 100 unit/mL vial insulin lispro (HUMALOG) 100 unit/mL vial lancets (ONETOUCH DELICA LANCETS) 33 gauge Misc levothyroxine (SYNTHROID, LEVOTHROID) 25 MCG tablet losartan (COZAAR) 25 MG tablet metoprolol tartrate (LOPRESSOR) 25 MG Immediate Release tablet simvastatin (ZOCOR) 40 MG tablet tamsulosin (FLOMAX) 0.4 mg Cp24 24 hr capsule General Appearance Alert, Oriented X3, Cooperative HEENT Atraumatic, EOMI, dry MM Cardiovascular Normal S1, Normal S2 Lungs bilateral wide spread coarse rales Abdomen Normal Bowel Sounds, Soft, 2 scars of old hernia operation in the mid abdomen, localized non tender swelling around the scar Neurological Normal Speech, Strength at 5/5 X4 Ext, Normal Tone, Sensation Intact, Cranial Nerves 3-12 NL Extremities 2 + BL pitting edema, chronic skin changes, faint pulses in dorsalis pedis, amputation of toes 2-5 on the left foot, big toe shoe redness and excoriartion This is an unfortunate 77-year-old gentleman with history of severe cardiomyopathy with low ejection fraction, diabetes with chronic kidney disease, legally blind from diabetic retinopathy, poor performance status bedbound wheelchair bound almost, lower extremity edema with chronic venous ulcers, previously had denied any further workup and treatment for his worsening cardiomyopathy including not going through the AICD came in because he was having generalized weakness. History as noted above. Patient has been on anticoagulation recently with Eliquis for his paroxysmal atrial fibrillation. When he came into the emergency room he was slightly hypotensive and was found to be in acute renal failure and was fluid resuscitated. Distantly hypotensive. He did say that he may have had chest pain at home but he did not have any pain when he was here, he was complaining of productive cough with small yellow sputum but his chest x-ray did not show any significant infiltrate. His issues include * Severe cardiomyopathy with low ejection fraction now with acute renal failure probably related to low flow state, patient's CVP is more than 16 * Persistent hypotension now requiring pressors consistent with cardiogenic shock unlikely sepsis. * Previous renal stone with obstructive uropathy in the past, with nephrostomy tube in the past * Acute on chronic systolic heart failure * Pulmonary congestion with cough and some sputum rule out acute bronchitis versus subtle right middle lobe pneumonia * Coronary artery disease, previous CABG, significant ischemic cardiomyopathy with reduced ejection fraction * Paroxysmal atrial fibrillation * Pulmonary hypertension secondary to his significant heart disease * Very severe peripheral vascular disease and chronic venous insufficiency had denied any surgery * Insulin requiring diabetes with all the complications including diabetic retinopathy, nephropathy, vascular disease * Morbid obesity, chronic anemia, BPH, hypothyroidism on appropriate medications * Obstructive sleep apnea with obesity hypoventilation syndrome does not wish to use CPAP on oxygen * GERD/ventral hernia * Hypothyroid on levoxyl * COPD which is mild to moderate with component of restrictive lung disease RECOMMENDATION Discussed with patient extensively now and as an outpatient before. His prior wishes were to only go through very conservative therapy and if worse he wished very conservative care. He has reluctantly agreed to have a triple-lumen hence we will treat him conservatively per his wishes * Start low-dose levo fed * Reduce IV fluids to 50 cc * Keep n.p.o. * Sliding scale * Hold anticoagulation for now. Patient was on Eliquis now and acute renal failure. If he improves we will start him on heparin. He does seem to have microcytic anemia now, check stool for heme * If his blood pressure tolerates we will have to consider rate control medication as he continues to be tachycardic with very low dose beta-zaid versus amiodarone will have cardiology to see the patient. Not a candidate for digoxin due to worsening acute renal failure * Check thyroid function tests * Continue high-dose statin, hold for the Levoxyl, * Rule out DE * Echocardiogram * Ultrasound of the abdomen to rule out obstructive uropathy and if it is nonrevealing will do a CT scan of the abdomen and pelvis if he becomes more stable later on during the day * Continue ceftriaxone for now * Nebulizer treatment only with ipratropium to prevent tachycardia * Dr. Jason is aware will be seeing the patient today Patient is critically ill total time spent 45 minutes Patient wishes no dialysis no further aggressive therapy wishes to maximum conservative therapy. If he continues to get worse we will discuss other options
--- NOTE | 2017-11-11 10:53 | RADIOLOGY REPORT ---
EXAMINATION: XR PORTABLE CHEST CLINICAL INFORMATION: Hypotensive, right IJ placed. Confirm placement. Central line placement. COMPARISON: Chest x-ray dated 11/11/2017 and older exams. TECHNIQUE: Portable AP erect view of the chest was obtained on 2 images. FINDINGS: Evaluation is limited due to difficulties with patient positioning and overlap of the patient's chin onto the upper chest. The patient is status post median sternotomy. Multiple EKG leads overlie the chest. A right jugular central venous line is in place with tip in the mid SVC. The cardiac mediastinal silhouette is enlarged, unchanged. Low lung volumes are seen with bibasilar linear reticular opacities, right greater than left most consistent with subsegmental atelectasis. No pneumothorax is seen. Bony structures grossly unremarkable. IMPRESSION: 1. Right IJ central venous line in place with tip in the mid SVC. No pneumothorax. 2. No significant change in bibasilar right greater than left reticular opacities, most likely related to subsegmental atelectasis. Clinical correlation requested to exclude subtle pneumonia in the right lung base.
--- NOTE | 2017-11-11 11:29 | ULTRASOUND REPORT ---
EXAMINATION: US RETROPERITONEAL COMPLETE (RENAL) CLINICAL INFORMATION: Weakness, worsening kidney function.. COMPARISON: CT abdomen and pelvis without contrast 06/12/2009, CT abdomen and pelvis 09/20/2008. TECHNIQUE: Real-time imaging of the kidneys and bladder. Technically challenging exam due to patient body habitus. FINDINGS: RIGHT KIDNEY: 10.6 x 5.2 x 6.3 cm (SAG x AP x TRV). The kidney is normal in size, contour, and echogenicity. Renal cortical thickness is normal. No calculi or hydronephrosis. In the midpole of the right kidney there is a 2.1 x 1.2 x 1.5 cm hypoechoic nodule which does not meet criteria for a simple cyst on the current ultrasound however this is not significantly changed from a simple appearing cyst seen on prior CT abdomen and pelvis from 09/20/2008. There is a simple appearing cyst in the lower pole of the right kidney measuring 1.2 x 1.3 x 1.2 cm LEFT KIDNEY: 9.3 x 6.2 x 4.9 cm (SAG x AP x TRV). The kidney is normal in size, contour, and echogenicity. Renal cortical thickness is normal. No focal parenchymal lesions. No hydronephrosis. There is a nonobstructing 1.1 cm calculus in the lower pole of the left kidney. BLADDER: The bladder is decompressed with a Landaverde catheter in place. IMPRESSION: Technically challenging exam due to patient body habitus. 1. No hydronephrosis. 2. Nonobstructing 1.1 cm calculus in the lower pole of the left kidney. 3. A 2.1 x 1.2 x 1.5 cm hypoechoic lesion in the midpole of the right kidney does not meet criteria for a simple cyst, however there was a simple cyst prior CT abdomen and pelvis from 04/22/2008 in this location.
[2017-11-11 12:00] VITALS: BP 98/48
[2017-11-11 12:43] LABS: PT 16.7 SEC (9.4-12.5)
--- NOTE | 2017-11-11 15:56 | ECHOCARDIOGRAM REPORT ---
BRANDY JARA Age: 77 : 1940 Gender: M Exam Date: 11/11/2017 10:47 Exam Location: [facility] Ht (in): 69 Wt (lb): 224 BSA: 2.26 BP: 68 / 45 Ordering Physician: Amador Bronson MD Referring Physician: Amador Bronson MD Technologist: Drake Ahmadi WHIT Room Number: 107 Indications: Hypotension Rhythm: Atrial fibrillation Technical Quality: good FINDINGS Left Ventricle Mildly enlarged left ventricle with normal wall thickness. Severely decreased systolic function with anterolateral wall dyskinesis superimposed on global hypokinesis. The ejection fraction is visually estimated at 20 %. Right Ventricle The right ventricle is normal in size and function. Right Atrium The right atrium is normal in size. Left Atrium The left atrium is moderately enlarged. The interatrial septum is intact. Mitral Valve The mitral valve is normal in structure and function. There is no mitral regurgitation. Aortic Valve Structurally normal aortic valve without significant sclerosis or stenosis. There is no aortic regurgitation. Tricuspid Valve The tricuspid valve is normal in structure and function. There is mild tricuspid regurgitation. Pulmonary artery systolic pressure is moderately elevated to 55mmHg. Pulmonic Valve Structurally normal pulmonic valve. There is no pulmonic regurgitation. Pericardium Normal pericardium without effusion. No pleural effusion. Great Vessels Normal aortic root dimension. The aortic arch and great vessels are well seen and are normal. CONCLUSIONS 1. Mildly enlarged left venticle with severely decreased EF of 20%. 2. Moderate left atrial enlargement. 3. Mild tricuspid regurgitation. 4. Moderate to severe pulmonary hypertension. Niels Jason M.D. (Electronically Signed) Final Date: 11 November 2017 15:52 MEASUREMENTS (Male / Female) Normal Values 2D ECHO LV Diastolic Diameter PLAX 6.7 cm 4.2 - 5.9 / 3.9 - 5.3 cm LV Systolic Diameter PLAX 5.6 cm 2.1 - 4.0 cm LV Fractional Shortening PLAX 16.4 % 25 - 46 % LV Ejection Fraction 2D Teich 33.6 % IVS Diastolic Thickness 0.9 cm LVPW Diastolic Thickness 0.8 cm LV Relative Wall Thickness 0.3 LVOT Diameter 2.2 cm Aortic Root Diameter 3.0 cm LA Systolic Diameter LX 4.6 cm 3.0 - 4.0 / 2.7 - 3.8 cm LA Volume 111.0 cm 18 - 58 / 22 - 52 cm Ascending Aorta Diameter 3.3 cm DOPPLER AV Peak Velocity 142.0 cm/s AV Peak Gradient 8.1 mmHg AV Mean Velocity 111.0 cm/s AV Mean Gradient 5.0 mmHg AV Velocity Time Integral 26.5 cm LVOT Peak Velocity 76.7 cm/s LVOT Peak Gradient 2.4 mmHg LVOT Mean Velocity 52.4 cm/s LVOT Mean Gradient 1.0 mmHg LVOT Velocity Time Integral 14.4 cm LVOT Stroke Volume 54.7 cm AV Area Cont Eq vti 2.1 cm AV Area Cont Eq pk 2.1 cm MV Peak Velocity 119.0 cm/s MV Peak Gradient 5.7 mmHg MV Mean Velocity 72.7 cm/s MV Mean Gradient 3.0 mmHg Mitral E Point Velocity 98.2 cm/s MV PHT Velocity 122.0 cm/s MV Deceleration Sharp 377.0 cm/s MV Pressure Half Time 97.1 ms MV Area PHT 2.3 cm MV Deceleration Time 215.0 ms TR Peak Velocity 352.0 cm/s TR Peak Gradient 49.6 mmHg Right Atrial Pressure 10.0 mmHg Pulmonary Artery Systolic Pressure 59.6 mmHg Right Ventricular Systolic Pressure 59.6 mmHg PV Peak Velocity 84.1 cm/s PV Peak Gradient 2.8 mmHg PV Mean Velocity 60.2 cm/s PV Mean Gradient 2.0 mmHg PV Velocity Time Integral 14.9 cm LV E' Lateral Velocity 11.4 cm/s Mitral E to LV E' Lateral Ratio 8.6
[2017-11-11 16:00] VITALS: BP 100/52
[2017-11-11] MEDS ORDERED: ELIQUIS5 M1 PO (16:56)
[2017-11-11] MEDS ORDERED: LASIX40 M1 PO (16:57)
[2017-11-11] MEDS ORDERED: LANTUS100 UNIT/1 SC (16:59)
--- NOTE | 2017-11-11 18:47 | Cons- Cardiology ---
General Information and HPI Consulting Request Date of Consult: 11/11/17 Requested By: Kota [place],Natanael Thakkar History of Present Illness: Gavin is a 77 year old male who carries a history of hypertension, COPD, obstructive sleep apnea, hypoventilation syndrome, renal insufficiency, diabetes , ischemic cardiomyopathy with mitral regurgitation, and prior bypass surgery. He also carries history of congestive heart failure and GI bleed. Gavin is currently almost completely inactive at baseline but he normally can walk a short distance. Yesterday, he became very weak and was not able to arise from a chair according to his . He was also noted by her to be confused. He is not currently very communicative but denies chest discomfort. He has upper airway congestion and is currently on pressors to maintain his blood pressure. He is known to have chronic orthopnea and sleeps in a reclining chair. It should also be noted that this patient is somewhat despondent due to his poor quality of life and is now completely blind. His legs are more swollen and erythematous than they previously were. It is noted that this patient has a highly elevated creatinine compared with his baseline and has a mildly elevated troponin. His BNP is elevated although his chest X-ray was read as no edema. His latest echocardiogram prior to admission showed a severely decreased EF of 20-25%. The LV is mildly dilated with moderate left ventricular hypertrophy. His left atrium is markedly dilated. Mild MR, mild to moderate TR and severe pulmonary hypertension were noted. On a previous visit, I did recommend the use of CPAP for sleep apnea, but he has not pursued this suggestion. It should be recalled that approximately two years ago the patient was noted to have progressive renal insufficiency with an obstructing left kidney stone and left hydronephrosis. A nephrostomy tube was placed at that time. Followup was supposed to be with Dr. Kimble. To Review the Patient's Past History: In May of 2007, Gavin demonstrated weakness and hypertension as well as acute renal failure with elevated cardiac enzymes indicative of a non-Q-wave GA. A subsequent cardiac catheterization showed three vessel disease which ultimately led to bypass surgery. His grafts consisted of a JOHNS graft to the LAD and saphenous vein grafts to the OM-1, right coronary artery, and right PDA. Mitral valve repair was felt to be too high risk and was deferred. The mitral valve did appear to be functioning better post revascularization. The patient's preprocedure EF was 15% with 3+ MR and the inferior wall appeared to be akinetic with a moderate to severe septal hypokinesis and moderate to severe lateral wall hypokinesis. In terms of coronary arteries, the left main is normal. The LAD harbored a long 70% proximal stenosis. The left circumflex had a 100% proximal stenosis. The right coronary artery was dominant with a 90% mid stenosis and an 80% stenosis at the bifurcation into the PDA and posterolateral branch. The patient's most recent echocardiogram performed in September of 2008 showed an overall EF of 30% with a hypokinetic anterior and inferior wall and mild left ventricular hypertrophy. Mild left atrial enlargement was noted. In terms of cardiac valves, there was mild mitral regurgitation, mild tricuspid regurgitation, and trace AI. It should also be noted that a prior echo did report some restrictive physiology. Allergies/Medications Allergies: Coded Allergies: No Known Allergies (01/03/17) Home Med List: Apixaban (Eliquis) 5 MG TABLET 1 TAB PO BID heart health (Reported) Aspirin (Ecotrin*) 81 MG TABLET.DR 1 TAB PO DAILY HEART/BLOOD (Reported) Cephalexin 500 MG CAPSULE 500 MG PO Q12 cellulitis please take one tablet tonight and one tablet tomorrow morning and one tablet tomorrow evening Cyanocobalamin (Vitamin B-12) (Unknown Strength) TABLET (Unknown Dose) PO DAILY SUPPLEMENT (Reported) Furosemide 40 MG TABLET 1 TAB PO BID DIURETIC (Reported) Insulin Lispro (Humalog) 100 UNIT/ML VIAL 0 SC TIDAC DM BS Sliding Scale Instruction Less than 80 mg/dl Initiate Hypoglycemia 80-150 mg/dl No Change 151-200 mg/dl Four units 201-250 mg/dl Six units 251-300 mg/dl Eight units 301-350 mg/dl Ten Units 351-400 mg/dl Twelve Units More than 400 mg/dl Fourteen Units Insulin-Lantus (Lantus) 100 UNIT/ML VIAL 70 UNIT SC AT BEDTIME DM Levothyroxine Sodium 25 MCG TABLET 1.5 TAB PO QPM THYROID (Reported) Losartan Potassium 25 MG TABLET 1 TAB PO DAILY BP (Reported) Metoprolol Tartrate 25 MG TABLET 1 TAB PO BID HEART/BP (Reported) Multivitamin/Iron/Folic Acid (Centrum Adults Tablet) 18 MG IRON-400 MCG TABLET 1 TAB PO DAILY SUPPLEMENT (Reported) [place]-3 Fatty Acids/Fish Oil (Fish Oil 1,200 MG Softgel) 360 MG-1,200 MG CAPSULE. 1 SGL PO DAILY SUPPLEMENT (Reported) Omeprazole 20 MG CAPSULE.DR 1 CAP PO DAILY GI (Reported) Simvastatin (Simvastatin*) 40 MG TABLET 1 TAB PO QPM CHOLESTEROL (Reported) Tamsulosin HCl 0.4 MG CAP.ER.24H 1 CAP PO QPM PROSTATE (Reported) Review of Systems Review of Systems: decreased appetite Past History Travel History Traveled to [place] past 21 day No Medical History Blood Transfusion Hx: No Neurological: NONE EENT: blindness Cardiovascular: CAD, chronic venous insuff, hypertension, bradycardia VALVE REPLACEMENT Respiratory: NONE Gastrointestinal: NONE Hepatic: NONE Renal: NONE Musculoskeletal: L. TOES AMPUTATION Psychiatric: NONE Endocrine: diabetes, hypothyroidism Blood Disorders: NONE Cancer(s): NONE ACADEMIC SPECIALIST/Reproductive: NONE Surgical History Surgical History: left toe amputations Family History Relations & Conditions If Any: FATHER, ; Cause: Smoking. MOTHER, ; Cause: Old age. Psychosocial History Where Do You Live? Home Services at Home: None Smoking Status: Former Smoker ETOH Use: denies use Illicit Drug Use: denies illicit drug use Exam & Diagnostic Data Vital Signs and I&O Vital Signs Date Time Temp Pulse Resp B/P B/P Pulse O2 O2 Flow FiO2 Mean Ox Delivery Rate 11/11 1630 91 Nasal 2.0L Cannula 11/11 1600 92 Nasal 2.0L Cannula 11/11 1600 97.3 123 30 100/52 92 Nasal 2.0L Cannula 11/11 1200 95 Nasal 2.0L Cannula 11/11 1200 97.9 115 28 98/48 95 Nasal 2.0L Cannula 11/11 1048 93 Nasal 2.0L Cannula 11/11 1039 Nasal 2.0L Cannula 11/11 0932 69/51 11/11 0800 93 Nasal 2.0L Cannula 11/11 0800 96.6 114 22 80/0 93 Nasal 2.0L Cannula 11/11 0400 95 Nasal 2.0L Cannula 11/11 0111 96 Nasal 2.0L Cannula 11/11 0025 96.1 97 28 68/00 94 Room Air Room Air 11/10 2312 99.1 102 18 93/51 96 Room Air 11/10 2158 108 83/53 11/10 2116 99.2 104 20 84/60 94 Room Air 11/10 1918 Room Air 11/10 1845 107/53 11/10 1839 97.5 108 18 94 Room Air Intake & Output 11/11 1600 11/11 0800 11/11 0000 11/10 1600 11/10 0800 11/10 0000 Intake Total 826 2801 100 Output Total 65 25 500 Balance 761 2776 -400 Intake, IV 826 2801 100 Intake, Oral 0 0 Number 2 0 Bowel Movements Output, Urine 65 25 500 Patient 230 lb 280 lb Weight Weight Bed scale Estimated Measurement Method Physical Exam: General: WD/obese male in NAD; lethargic but awake and responsive HEENT: NC/AT Neck: No JVD, no carotid bruit Heart: RRR with 2/6 systolic murmur Lungs: clear bilaterally anteriorly Abdomen: soft, obese, NT, +ve bowel sounds, ventral hernia Extremities: 2+ bilateral leg edema with venous stasis changes and erythema Assessment/Plan Assessment/Plan * This patient has a borderline blood pressure and is on pressors. He also has acute renal failure that may be related to a pre-renal state. His EF has been very low for some time and it may be that an underlying infectious process has pushed that patient into decompensated CHF. Regardless, this patient needs some help with his myocardial contractility. Begin IV dobutamine at 5mcg/kg/min. This should help his pre-renal state. I would not start digoxin at this point in time since it is cleared by the kidneys. He will not be able to tolerate diuretics at this point in time with his borderline blood pressure. I would not slow his heart rate by any medications at this point in time since he is relying on his tachycardia to maintain his cardiac output. CO is heart rate x stroke volume and by his latest echo he has minimal stroke volume. Granted, in the setting of the tachycardia he is having some demand ischemia. * I do not think that an acute GA is the index event. It is not unreasonable to begin IV heaprin however. * This patient has swollen and erythematous lower extremities suggestive of a bilateral cellulitis although RV failure and chronic statis changes may be the cause of these findings. I recently tried to increase his Lasix dose to improve this swelling but this has caused a worsening of his renal insufficiency. We will hold Lasix for now as stated above. * In consideration of his renal insufficiency we will also hold his Losartan for now. * This patient has COPD and SALLIE. Consult Acknowledgment - Thank you for your consult request.
[2017-11-12] VITALS: BP 92/50
[2017-11-12 01:17] LABS: PTT 42 SEC (25-37)
[2017-11-12 04:15] LABS: ABSOLUTE BASOPHIL COUNT 0 /CUMM (0.0-0.2); ABSOLUTE EOSINOPHIL COUNT 0 /CUMM (0.0-0.7); ABSOLUTE GRANULOCYTE CT 7.6 /CUMM (1.4-6.5); ABSOLUTE LYMPH COUNT 0.8 /CUMM (1.2-3.4); ABSOLUTE MONOCYTE COUNT 0.6 /CUMM (0.10-0.60); BASOPHIL % 0.2 % (0.0-2.0); EOSINOPHIL % 0 % (0-5); GRANULOCYTE % 84.2 % (42.2-75.2); HEMATOCRIT 28.3 % (42-52); MEAN CORPUSCULAR HGB 25.2 PG (27.0-31.0); MEAN CORPUSCULAR HGB CONC 33.1 G/DL (33.0-37.0); MEAN CORPUSCULAR VOLUME 76.3 FL (80.0-94.0); MEAN PLATELET VOLUME 7.5 FL (7.4-10.4); PLATELET COUNT 232 /CUMM (130-400); RBC DISTRIBUTION WIDTH 16.7 % (11.5-14.5)
--- NOTE | 2017-11-12 07:05 | PN- Resident CRCU ---
Subjective HPI/CRCU Issues: Cardiogenic shock due to ischemic cardiomyopathy Acute on chronic systolic heart failure Acute on chronic kidney injury in the setting of cardiogenic shock and prerenal. Possible right middle lobe pneumonia versus bronchitis History of Coronary artery disease, previous CABG, significant ischemic cardiomyopathy with reduced ejection fraction History of Paroxysmal atrial fibrillation History of Pulmonary hypertension secondary to his significant heart disease History of Severe peripheral vascular disease and chronic venous insufficiency History of Insulin requiring diabetes with complications including diabetic retinopathy, nephropathy and vascular disease. History of COPD/SALLIE on CPAP and oxygen History of GERD and ventral hernia History of hypothyroidism History of obstructed uropathy due to renal stone with nephrostomy tube 24 Hour Events: Patient remained afebrile overnight. Seen and examined this morning. He is lethargic but responding to verbal command. His blood pressure overnight remained in 80s and 70s systolic. Overnight he made 207 mL urine. He remained on pressors. Patient has gurgling sound and throat due to secretions but he has cough reflex. Objective Vital Signs & I&O Last 8 Hrs of Vitals and I&O: Intake & Output 11/12 1600 11/12 0800 11/12 0000 Intake Total 449 1129 Output Total 65 77 Balance 384 1052 Intake, IV 449 1129 Intake, Oral 0 Number 1 0 Bowel Movements Output, Urine 65 77 Patient 229 lb Weight Laboratory Tests 11/12 11/12 11/12 0730 0345 0055 Chemistry Sodium (137 - 145 mmol/L) 136 L 134 L Potassium (3.5 - 5.1 mmol/L) 4.2 4.3 Chloride (98 - 107 mmol/L) 110 H 109 H Carbon Dioxide (22 - 30 mmol/L) 14 L 12 L Anion Gap (5 - 16) 12 13 BUN (9 - 20 mg/dL) 108 *H 106 *H Creatinine (0.7 - 1.2 mg/dL) 6.4 *H 6.3 *H Estimated GFR (>60 ml/min) 9 L 9 L Glucose (65 - 99 mg/dL) 209 H 207 H Calcium (8.4 - 10.2 mg/dL) 7.3 L 7.3 L Phosphorus (2.5 - 4.5 mg/dL) 7.0 H 7.4 H Magnesium (1.6 - 2.3 mg/dL) 2.0 2.0 Total Bilirubin (0.2 - 1.3 mg/dL) 0.4 0.5 AST (17 - 59 U/L) 130 H 140 H ALT (21 - 72 U/L) 45 48 Troponin I (<0.11 ng/ml) 0.46 *H Albumin (3.5 - 5.0 g/dL) 2.2 L 2.4 L Coagulation APTT (25 - 37 SEC) 57 H 42 H Hematology CBC w Diff MAN DIFF ORDERED WBC (4.8 - 10.8 /CUMM) 9.0 RBC (4.70 - 6.10 /CUMM) 3.70 L Hgb (14.0 - 18.0 G/DL) 9.4 L Hct (42 - 52 %) 28.3 L MCV (80.0 - 94.0 FL) 76.3 L MCH (27.0 - 31.0 PG) 25.2 L MCHC (33.0 - 37.0 G/DL) 33.1 RDW (11.5 - 14.5 %) 16.7 H Plt Count (130 - 400 /CUMM) 232 MPV (7.4 - 10.4 FL) 7.5 Gran % (42.2 - 75.2 %) 84.2 H Lymphocytes % (20.5 - 51.1 %) 9.2 L Monocytes % (1.7 - 9.3 %) 6.4 Eosinophils % (0 - 5 %) 0 Basophils % (0.0 - 2.0 %) 0.2 Absolute Granulocytes (1.4 - 6.5 /CUMM) 7.6 H Segmented Neutrophils (42.2 - 75.2 %) 70 Band Neutrophils (0.0 - 5.0 %) 10 H Absolute Lymphocytes (1.2 - 3.4 /CUMM) 0.8 L Lymphocytes (20.5 - 51.1 %) 12 L Monocytes (1.7 - 9.3 %) 8 Absolute Monocytes (0.10 - 0.60 /CUMM) 0.6 Absolute Eosinophils (0.0 - 0.7 /CUMM) 0 Absolute Basophils (0.0 - 0.2 /CUMM) 0 Platelet Estimate (ADEQUATE) ADEQUATE Polychromasia 1+ Hypochromic-Microcytic 1+ Poikilocytosis 1+ Anisocytosis 1+ Microcytic Cells 1+ Yeyo Cells 1+ Other Body Source Fld Total RBCs Counted (%) 100 08/15 1730 Chemistry Sodium (137 - 145 mmol/L) 136 L Potassium (3.5 - 5.1 mmol/L) 4.7 Chloride (98 - 107 mmol/L) 106 Carbon Dioxide (22 - 30 mmol/L) 14 L Anion Gap (5 - 16) 16 BUN (9 - 20 mg/dL) 106 *H Creatinine (0.7 - 1.2 mg/dL) 6.2 *H Estimated GFR (>60 ml/min) 9 L Glucose (65 - 99 mg/dL) 207 H Calcium (8.4 - 10.2 mg/dL) 7.6 L Phosphorus (2.5 - 4.5 mg/dL) 8.0 H Magnesium (1.6 - 2.3 mg/dL) 2.1 Total Bilirubin (0.2 - 1.3 mg/dL) 0.5 AST (17 - 59 U/L) 184 H ALT (21 - 72 U/L) 54 Troponin I (<0.11 ng/ml) 0.24 *H Albumin (3.5 - 5.0 g/dL) 2.6 L Intake & Output 11/12 1600 Intake Total Output Total Balance Patient 229 lb Weight Exam General Appearance: lethargic Head: atraumatic Respiratory: chest non-tender, crackles Cardiovascular: regular rate/rhythm Gastrointestinal: soft, non-tender Extremities: B/L lower extrimity chrinic venous changes Skin Temp/Moisture Exam: Warm/Dry Sepsis Skin Exam (color): Normal for Ethnicity Current Medications: Current Medications Sig/Radhika Start time Last Medication Dose Route Stop Time Status Admin Acetaminophen 500 MG Q6P PRN 11/10 2345 AC PO Acetaminophen 1,000 MG Q6P PRN 11/10 2345 AC IV Atorvastatin Calcium 20 MG 1700 11/11 1700 AC PO Ceftriaxone Sodium 1,000 MG DAILY 11/11 0900 AC 11/12 IV 0955 Dextrose/Sodium 1,000 ML Q10H 11/11 0815 DC 11/12 Chloride IV 0437 Dobutamine HCl 250 MG Q24H 11/12 0900 AC 11/12 Dextrose/Water 250 ML IV 0957 Dobutamine HCl 250 MG Q24H 11/11 193 DC 11/12 Dextrose/Water 250 ML IV 0503 Heparin Sodium 0 .STK-MED ONE 11/12 0136 DC (Porcine) .ROUTE Heparin Sodium 25,000 UNIT Q24H 11/11 1930 AC 11/11 (Porcine) IV 1933 Sodium Chloride 500 ML Heparin Sodium 5,000 UNIT Q8 11/10 2313 DC 11/11 (Porcine) SC 1356 Insulin Human Regular 0 Q6 11/11 1327 AC 11/12 SC 1333 Ipratropium [place] 2.5 ML Q4P PRN 11/11 1100 AC INH Norepinephrine 4 MG Q13H 11/12 2200 DC Sodium Chloride 250 ML IV Norepinephrine 4 MG Q3H 11/12 1700 AC Sodium Chloride 250 ML IV Norepinephrine 0 .STK-MED ONE 11/12 1349 DC IV Norepinephrine 4 MG Q6H 11/11 1500 AC 11/12 Sodium Chloride 250 ML IV 11/12 1659 0955 Nystatin 1 CLARITA TID 11/11 1400 AC 11/12 TOP 1334 Sodium Bicarbonate 100 MEQ Q20H 11/12 1100 AC 11/12 Dextrose/Water 1,000 ML IV 1309 Sodium Bicarbonate 50 MEQ Q20H 11/12 1015 DC Dextrose/Sodium 1,000 ML IV Chloride Sodium Bicarbonate 150 MEQ Q20H 11/12 0915 DC 11/12 Dextrose/Water 1,000 ML IV 11/13 0514 0956 Vancomycin HCl 1,500 MG ONCE ONE 11/12 1100 CAN Sodium Chloride 250 ML IV 11/12 1229 Vancomycin HCl 1,500 MG ONCE ONE 11/12 1100 DC 11/12 Sodium Chloride 250 ML IV 11/12 1229 1308 Vancomycin HCl 1,500 MG ONCE ONE 11/12 1030 CAN IV 11/12 1031 Zinc Oxide 1 CLARITA BID 11/11 1146 AC 11/12 TOP 0956 Impression/Plan Impression/Problem List Impression: 77 YO M legally blind with PMH of severe cardiomyopathy with low ejection fraction, diabetes with chronic kidney disease, diabetic retinopathy, poor performance status bedbound wheelchair bound almost, lower extremity edema with chronic venous ulcers, previously had denied any further workup and treatment for his worsening cardiomyopathy including not going through the AICD came in because he was having generalized weakness. History as noted above. Patient has been on anticoagulation recently with Eliquis for his paroxysmal atrial fibrillation. In ED patient was hypotensive with acute on chronic kidney injury. Patient was given IV resuscitation with 2.5 L of fluid but his remained hypotensive. Patient was offered central line to start pressor initially patient refused but later on he agreed. This morning he was started on pressor after central line. Patient was complaining of productive cough with yellow colored phlegm and chest x-ray didn't show any infiltrates initially. Cardiogenic shock: -Due to acute on chronic systolic heart failure in the setting of ischemic cardiomyopathy. Less likely due to septic shock. His last echo was done in 2016 that showed ejection fraction 30%. With moderate to severe global reduced left ventricular systolic function. -On last admission the possibility of a ACID was discussed with the patient but patient couldn't get it considering his weakness. -His systolic blood pressure remained in 80s with Doppler. -Continue his Levophed on 15 mcg/h through CVP line. -Continue debutamine @ 2.5 mcg/h considering his tachycardia. -His CVP pressure remained elevated due to worsening cardiac systolic function. -Continue D5 water @50ml/h with three ampules of bicarbonate. -Patient is not candidate for digoxin considering his worsening kidney function. -Monitoring his troponin and EKGs to rule out cardiac ischemia that can precipitate his acute on chronic systolic dysfunction. -Daily weight -Monitor input and output -Closely monitor his blood pressure. -Echo showed EF of 20%. -We will follow cardiology recommendations. Acute on chronic kidney injury: -Patient's baseline creatinine is 1.4 as mentioned in his last discharge summary in December 2016. -His GFR remained in the 40s50s -Stage III CKD as patient having diabetic nephropathy. -Acute on chronic kidney injury this time possibly with prerenal in the setting of acute on chronic systolic dysfunction. -Patient wishes no dialysis no further aggressive therapy wishes to maximum conservative therapy. If he continues to get worse we will discuss other options. -Avoid nephrotoxic medications and NSAIDs -Holding his Lasix and losartan due to low blood pressure and kidney injury. -Monitor input and output, his urine out put over night was 207ml. -Given 3 ampules of bicarbonate with ivf and started him on bicardonate drip low dose. -His creatine/BUN is 6.4/108 today. -Follow-up nephrology recommendations. Possible pneumonia versus bronchitis: -Patient is complaining of cough and bringing up yellow colored phlegm. Although he is afebrile and normal WBC count. -Imaging studies showed this morning opacity in right middle lobe could be pneumonia or atelectasis. -Continue ceftriaxone, Day 3 -One dose of vancomycine was given to cover MRSA. -Follow-up sputum culture -Nebulization with ipratropium to prevent tachycardia -Watch for signs of infection Elevated troponin: -Patient has elevated troponin possibly due to cardiomyopathy or demand ischemia in the setting of acute on chronic kidney. -No changes and EKGs. His trops 0.12-->0.13-->0.13-->0.18-->0.24-->0.46 -Pssibly demand ischemia due to tachycardia. Hyperphosphatemia: -Due to acute on chronic kidney injury -Today his phosphate is 7.0 History of paroxysmal A. fib: -Patient was on xeralto that he took 24-hour before. -Holding his xeralto to due to acute on chronic kidney. IV heparin was started yesterday to prevent from stroke. -Holding his metoprolol due to low blood pressure. History of obstructed uropathy due to kidney stone: -In the past patient has kidney stones and nephrostomy tube was placed. -Ultrasound showed renal stones but nonobstructing. History of hypothyroidism: -Holding his levothyroxin. -We will check his TSH and free T4. History of hypertension hyperlipidemia: -Holding his metoprolol and losartan -Continuing his Lipitor History of diabetes with complication: -Patient has insulin requiring diabetes with retinopathy, nephropathy and peripheral vascular disease. -Accu-Cheks -Insulin NovoLog sliding sliding scale Bedsores: -Patient had bedsores present on admission in coccygeal region and on buttocks. -He has ecchymosis close to scrotum and skin tears -Patient needs clinitron bed to prevent progression of pressure ulcers. -Daily dressing as needed with zinc oxide ointment. Goals of care: -Patient wishes no dialysis no further aggressive therapy wishes to maximum conservative therapy. If he continues to get worse we will discuss other options, including comfort care and hospice DVT prophylaxis: Only s/c heparin. No mechanical due to chronic venous changes. CODE STATUS: DNR/intu Problem List: 1. [id number] kidney injury 2. Acute on chronic systolic heart failure 3. Elevated troponin Pain Ratin Pain Location: none Pain Plan: pain pathway Tomorrow's Labs & Rationales: cbc/icu bundle Plan DVT/Prophylaxis: pharmacological
[2017-11-12 08:00] VITALS: BP 80/70
[2017-11-12 09:28] LABS: PTT 57 SEC (25-37)
--- NOTE | 2017-11-12 09:40 | PN- CRCU ---
Subjective HPI/Critical Care Issues: Unfortunately continues to deteriorate Has had minimal urine output Now significantly tachycardic on dobutamine and on levo fed Decreased mental status but awakes on response follows commands Afebrile Has had difficulty maintaining his oral airway SIGNIFICANT DATA His creatinine has gone up to 6.4 anion gap is now 12 bicarbonate is stable at 14 his phosphorus is elevated His troponin is trending slightly upwards not significant His TSH was slightly elevated white count 9 hemoglobin 9.4 platelets 2 3284% granulocytes his nasal swab was positive for MRSA Objective Current Medications: Current Medications Sig/Radhika Start time Last Medication Dose Route Stop Time Status Admin Acetaminophen 500 MG Q6P PRN 11/10 2345 AC PO Acetaminophen 1,000 MG Q6P PRN 11/10 2345 AC IV Atorvastatin Calcium 20 MG 1700 11/11 1700 AC PO Ceftriaxone Sodium 1,000 MG DAILY 11/11 0900 AC 11/11 IV 0932 Dextrose/Sodium 1,000 ML Q10H 11/11 0815 11/12 Chloride IV 0437 Dobutamine HCl 250 MG Q24H 11/12 0900 AC Dextrose/Water 250 ML IV Dobutamine HCl 250 MG Q24H 11/11 1930 DC 11/12 Dextrose/Water 250 ML IV 0503 Heparin Sodium 0 .STK-MED ONE 11/12 0136 DC (Porcine) .ROUTE Heparin Sodium 25,000 UNIT Q24H 11/11 1930 AC 11/11 (Porcine) IV 1933 Sodium Chloride 500 ML Heparin Sodium 5,000 UNIT Q8 11/10 2313 DC 11/11 (Porcine) SC 1356 Insulin Aspart 0 TIDAC 11/11 0800 WV 11/11 NE 0933 Insulin Human Regular 0 .STK-MED ONE 11/11 1355 DC .ROUTE Insulin Human Regular 0 Q6 / 1327 11/12 SC 0547 Ipratropium Gardner 2.5 ML Q4P PRN 11/11 1100 AC INH Norepinephrine 4 MG Q13H 11/12 2200 AC Sodium Chloride 250 ML IV Norepinephrine 4 MG Q6H 11/11 1500 AC 11/12 Sodium Chloride 250 ML IV 11/12 2159 0656 Norepinephrine 4 MG Q13H 11/11 1030 DC 11/11 Sodium Chloride 250 ML IV 1058 Norepinephrine 4 MG Q24H 11/11 0915 DC 11/11 Sodium Chloride 250 ML IV 0932 Nystatin 1 CLARITA TID 11/11 1400 AC 11/11 TOP 2038 Sodium Bicarbonate 150 MEQ Q20H 11/12 0915 Dextrose/Water 1,000 ML IV Vancomycin HCl 1,000 MG ONCE ONE 11/12 0900 UNir Sodium Chloride 250 ML IV 11/12 0959 Zinc Oxide 1 CLARITA BID 11/11 1146 11/11 TOP 2039 Vital Signs & I&O Last 24 Hrs of Vitals and I&O: Vital Signs Date Time Temp Pulse Resp B/P B/P Pulse O2 O2 Flow FiO2 Mean Ox Delivery Rate 11/12 0656 125 30 75/65 11/12 0503 125 28 81/44 11/12 0400 93 Nasal 2.0L Cannula 11/12 0056 97 Nasal 3.0L Cannula 11/12 0037 129 28 100/50 11/12 0000 94 Nasal 2.0L Cannula 11/12 0000 97.9 127 26 92/50 94 Nasal 2.0L Cannula 11/11 2219 126 103/65 11/11 2039 130 84/55 11/11 2000 96 Nasal 2.0L Cannula 11/11 1630 91 Nasal 2.0L Cannula 11/11 1600 92 Nasal 2.0L Cannula 11/11 1600 97.3 123 30 100/52 92 Nasal 2.0L Cannula 11/11 1200 95 Nasal 2.0L Cannula 11/11 1200 97.9 115 28 98/48 95 Nasal 2.0L Cannula 11/11 1048 93 Nasal 2.0L Cannula 11/11 1039 Nasal 2.0L Cannula Intake & Output 11/12 1600 11/12 0800 11/12 0000 Intake Total 449 1129 Output Total 65 77 Balance 384 1052 Intake, IV 449 1129 Intake, Oral 0 Number 1 0 Bowel Movements Output, Urine 65 77 Impression/Plan Impression/Plan Impression/Plan: General Appearance lethargic Cooperative HEENT Atraumatic, EOMI, dry MM Cardiovascular Normal S1, Normal S2 Lungs bilateral wide spread coarse rales Abdomen Normal Bowel Sounds, Soft, 2 scars of old hernia operation in the mid abdomen, localized non tender swelling around the scar Neurological lethargic and moves all limbs Extremities 2 + BL pitting edema, chronic skin changes, faint pulses in dorsalis pedis, 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 History as noted above. Patient has been on anticoagulation recently with Eliquis for his paroxysmal atrial fibrillation. His issues include * Severe cardiomyopathy with low ejection fraction 20 % now with acute renal failure probably related to low flow state * Mildly elevated troponin in a gentleman with chronic ischemic small vessel disease of his coronary. Not a candidate for any invasive procedure * Persistent hypotension now requiring pressors consistent with cardiogenic shock unlikely sepsis. * Previous renal stone with obstructive uropathy in the past, ultrasound needle acute * Acute on chronic systolic heart failure with ejection fraction less than 20%, * Pulmonary congestion with cough and some sputum rule out acute bronchitis versus subtle right middle lobe pneumonia * Coronary artery disease, previous CABG, significant ischemic cardiomyopathy * Paroxysmal atrial fibrillation, now tachycardic * Pulmonary hypertension secondary to his significant heart disease * Very severe peripheral vascular disease and chronic venous insufficiency had declined any surgery * Insulin requiring diabetes with all the complications including diabetic retinopathy, nephropathy, vascular disease * Morbid obesity, chronic anemia, BPH, hypothyroidism on appropriate medications * Obstructive sleep apnea with obesity hypoventilation syndrome does not wish to use CPAP on oxygen * GERD/ventral hernia * Hypothyroid on levoxyl * COPD which is mild to moderate with component of restrictive lung disease RECOMMENDATION * Continue Levophed, reduce dobutamine as he is persistently tachycardic * Start bicarbonate drip at a low dose * Keep n.p.o. * Sliding scale * Continue anticoagulation watch for drop in crit * patient declines any further invasive treatment * Continue ceftriaxone for now, add 1 dose of Vanco * Nebulizer treatment only with ipratropium to prevent tachycardia * Cardiology on board Patient is critically ill total time spent 40 minutes Patient wishes no dialysis no further aggressive therapy wishes to maximum conservative therapy. If he continues to get worse we will discuss other options, including comfort care and hospice
--- NOTE | 2017-11-12 13:32 | Event Note ---
Event Note Event Note: Doing poorly Maxed out on pressors and bp is low DIscussed with She wishes not instituting any more pressors Wishes to cont current rx IF worse and if he progressively becomes worse she wishes the patient to be made comfort and then vasopressors to stop Start morphine prn 2 mg to 4 mg iv q 30 mins prn for dyspnea and can be escalated to higher dose
--- NOTE | 2017-11-12 14:16 | PN- Cardiology ---
Subjective Subjective: * Patient is responding somewhat although it is not clear what he is saying. I believe he has no chest pain. * Patient is tachycardic and still dependent on pressors. * creatinine is 6.4 * mildly increased troponin in the setting of renal insufficiency. Objective Vital Signs and I&Os Vital Signs Date Time Temp Pulse Resp B/P B/P Pulse O2 O2 Flow FiO2 Mean Ox Delivery Rate 11/12 08 94 Nasal 2.0L Cannula 11/12 0800 98.4 126 26 80/70 96 Nasal 2.0L Cannula 11/12 0656 125 30 75/65 11/12 0503 125 28 81/44 11/12 0400 93 Nasal 2.0L Cannula 11/12 0056 97 Nasal 3.0L Cannula 11/12 0037 129 28 100/50 11/12 0000 94 Nasal 2.0L Cannula 11/12 0000 97.9 127 26 92/50 94 Nasal 2.0L Cannula 11/11 2219 126 103/65 11/11 2039 130 84/55 11/11 2000 96 Nasal 2.0L Cannula 11/11 1630 91 Nasal 2.0L Cannula 11/11 1600 92 Nasal 2.0L Cannula 11/11 1600 97.3 123 30 100/52 92 Nasal 2.0L Cannula Intake & Output 11/12 1600 11/12 0800 11/12 0000 11/11 1600 11/11 0800 11/11 0000 Intake Total 449 8204 027 2599 100 Output Total 65 77 65 25 500 Balance 384 6091 292 4516 -400 Intake, IV 449 5043 071 8297 100 Intake, Oral 0 0 0 Number 1 0 2 0 Bowel Movements Output, Urine 65 77 65 25 500 Patient 229 lb 230 lb 280 lb Weight Weight Bed scale Estimated Measurement Method Physical Exam: General: WD/obese male in NAD; lethargic but awake and responsive HEENT: NC/AT Neck: No JVD, no carotid bruit Heart: RRR with 2/6 systolic murmur Lungs: clear bilaterally anteriorly Abdomen: soft, obese, NT, +ve bowel sounds, ventral hernia Extremities: 2+ bilateral leg edema with venous stasis changes and erythema Assessment/Plan Assessment/Plan * This patient has a borderline blood pressure and is on pressors. He also has acute renal failure that may be related to a pre-renal state. His EF has been very low for some time and it may be that an underlying infectious process has pushed that patient into decompensated CHF. Regardless, this patient needs some help with his myocardial contractility. Dobutamine is continuing at a low dose but has been backed off on a bit due to extreme tachycardia. If his pressure falls below 70 systolic this would be an indication to stop dobutamine. Begin renal dose digoxin which is typically 0.125mg QOD although I am not confident that it will help at this point. The patient has a very low EF but also has a dyskinetic anterior wall making his cardiac output lower than would be expected for this same EF. He will not be able to tolerate diuretics at this point in time with his borderline blood pressure. I would not slow his heart rate by Amiodarone, calcium blockers or beta blockers since he is relient on tachycardia to maintain his cardiac output. This tachycardia is a classic sign of an end stage heart. Digoxin is reasonable due to the compensatory increased contractility. * In the setting of the tachycardia he is having some demand ischemia. * This patient has swollen and erythematous lower extremities suggestive of a bilateral cellulitis although RV failure and chronic statis changes may be the cause of these findings. I recently tried to increase his Lasix dose to improve this swelling but this has caused a worsening of his renal insufficiency. We will hold Lasix for now as stated above. * In consideration of his renal insufficiency we will also hold his Losartan for now. * Prognosis is grim. Continue telemetry? Yes
[2017-11-12 16:00] VITALS: BP 65/36
--- NOTE | 2017-11-12 19:58 | Event Note ---
Event Note Event Note: I was called to Mr. Villanueva room because he was not responsive ,There was no heart sound or breath sounds, No cardiac activity On the monitor , in addition pupils were dilated and fixed, Corneal reflexes were absent as well he at 19:48 . family opted out for autopsy, they said they know the cause of since he was sick for a long time . Of note the pt was made comfort measure only earlier this afternoon. Dr. Escudero and Dr. Bob were made aware
== END 2017-11-12 22:15 | disposition expired | DRG 682 ==
LOC: ERH 18:31 → ERHI 22:17 → CRI 22:17 → ENRESERV 22:47 → CRI 11-11 00:12
PROVIDERS: Emergency Medicine; Internal Medicine; Internal Medicine Pulmonary Disease; Student in an Organized Health Care Education/Training Program
PROC: 05HY33Z Insertion of Infusion Device into Upper Vein, Percutaneous Approach (ICD-10-PCS; principal; 2017-11-11)
DX: N17.9 Acute kidney failure, unspecified (principal); I50.23 Acute on chronic systolic (congestive) heart failure; I42.9 Cardiomyopathy, unspecified; E66.2 Morbid (severe) obesity with alveolar hypoventilation; E87.1 Hypo-osmolality and hyponatremia; I13.0 Hypertensive heart and chronic kidney disease with heart failure and stage 1 through stage 4 chronic kidney disease, or unspecified chronic kidney disease; L03.116 Cellulitis of left lower limb; L03.115 Cellulitis of right lower limb; R57.0 Cardiogenic shock; E11.319 Type 2 diabetes mellitus with unspecified diabetic retinopathy without macular edema; Z79.4 Long term (current) use of insulin; Z79.84 Long term (current) use of oral hypoglycemic drugs; I44.4 Left anterior fascicular block; E03.9 Hypothyroidism, unspecified; I73.9 Peripheral vascular disease, unspecified; I48.0 Paroxysmal atrial fibrillation; Z79.01 Long term (current) use of anticoagulants; I87.2 Venous insufficiency (chronic) (peripheral); Z68.33 Body mass index [BMI] 33.0-33.9, adult; I27.20 Pulmonary hypertension, unspecified; I25.10 Atherosclerotic heart disease of native coronary artery without angina pectoris; Z95.1 Presence of aortocoronary bypass graft; Z89.422 Acquired absence of other left toe(s); J44.9 Chronic obstructive pulmonary disease, unspecified; D63.1 Anemia in chronic kidney disease; E11.22 Type 2 diabetes mellitus with diabetic chronic kidney disease; N18.9 Chronic kidney disease, unspecified; E86.0 Dehydration
CPT/HCPCS: 84133; 84300; 87184; CCU; ERO; 36415; 36592; 71045; 76775; 81003; 82436; 82570; 87040; 87070; 87086; 87147; 93005; 93010; 96372; C8929; J0131; J0696; J1644; J1815; J3370; J7040; J7042; J7060; Q9957